=== PATIENT | female | born 1985 | race Hispanic/Latino ===

== ENCOUNTER 2016-08-22 11:51 | Emergency (ER) | payer SELFPAY ==
[~2016-08-22] VITALS: Ht 160 cm; Wt 68.0 kg
[2016-08-22 13:14] LABS: BASOPHILS % (AUTO) 0 % (0-10); EOSINOPHILS # (AUTO) 0.1 10^3/uL (0.0-0.3); EOSINOPHILS % (AUTO) 1 % (0-10); LYMPHOCYTES # (AUTO) 2.8 X 10^3 (1.0-4.0); LYMPHOCYTES % (AUTO) 28 % (12-44); MEAN CORPUSCULAR HEMOGLOBIN 26 PG (25-34); MEAN CORPUSCULAR HGB CONC 33 G/DL (32-36); MEAN CORPUSCULAR VOLUME 80 FL (80-99); MONOCYTES % (AUTO) 11 % (0-12); NEUTROPHILS # (AUTO) 5.8 X 10^3 (1.8-7.8); NEUTROPHILS % (AUTO) 60 % (42-75); PLATELET COUNT 229 10^3/uL (130-400); RED BLOOD COUNT 4.78 10^6/uL (4.35-5.85); RED CELL DISTRIBUTION WIDTH 15.3 % (10.0-14.5); WHITE BLOOD COUNT 9.7 10^3/uL (4.3-11.0)
[2016-08-22 13:15] LABS: BILIRUBIN,URINE NEGATIVE (NEGATIVE); KETONES,URINE NEGATIVE (NEGATIVE); LEUKOCYTE ESTERASE ,URINE 2+ (NEGATIVE); NITRITE,URINE NEGATIVE (NEGATIVE); PH,URINE 6 (5-9); PROTEIN,URINE 3+ (NEGATIVE); UROBILINOGEN,URINE NORMAL (NORMAL)
[2016-08-22 13:43] LABS: SQUAMOUS EPITHELIAL CELL,UR 0-2 /HPF
--- NOTE | 2016-08-22 14:47 | Diagnostic Imaging Report ---
EXAMINATION: Transvaginal OB ultrasound. INDICATION: Vaginal bleeding. FINDINGS: The uterus is 7.8 x 5.2 x 5.3 cm. The endometrial stripe is 1 cm in thickness with no focal lesion or cystic gestational sac seen. The myometrium anteriorly demonstrates a 1.2 x 0.8 x 0.8 cm myometrial fibroid in the anterior body. The left ovary demonstrates a 1.7 cm lesion with no internal vascularity, suggestive of a hemorrhagic follicle with surrounding vascularity in the remaining ovarian tissue. The right ovary is 3.4 x 2.7 x 1.6 cm in size with a normal follicle seen. No significant free fluid or fluid collection in the pelvis is identified. IMPRESSION: 1. There is a 1.2 cm anterior myometrial fibroid. 2. Normal appearance of the endometrium. This may relate to a very early normal , failed , or occult ectopic . Serial beta-hCG and followup ultrasound would be recommended. Dictated by: Dictated on workstation # [id number]
--- NOTE | 2016-08-22 15:24 | ED GU-Female ---
General Chief Complaint: -Female Stated Complaint: VAG BLEEDING 6 WKS PREG Nursing Triage Note: PT REPORTS VAGINAL BLEEDING STARTING MONDAY, INCREASING TODAY AND WHITE TISSUE SEEN. PT REPORTS LAST MENTRUAL PERIOD 07/03 AND ESTIMATED 6 WEEKS . SHUTTLE FILLER LINE USED. Nursing Sepsis Screen: No Definite Risk Source: patient, spanish medical interpreter Exam Limitations: no limitations, language barrier History of Present Illness Time seen by provider: 12:26 Initial Comments Patient believes she is about 6 weeks . Today she developed vaginal bleeding and passed some white or aguilera tissue. Her last menstrual period was July 03. She has some burning with urination. No fever or vomiting. She has not yet had an ultrasound with this . Dr. Edouard is her assigned physician but she has not seen Dr. Edouard yet. Allergies and Home Medications Home Medications No Active Prescriptions or Reported Meds Constitutional: no symptoms reported EENTM: no symptoms reported Respiratory: no symptoms reported Cardiovascular: no symptoms reported Gastrointestinal: no symptoms reported Genitourinary: see HPI : Yes LMP: Jul 03, 2016 Musculoskeletal: no symptoms reported Skin: no symptoms reported Psychiatric/Neurological: No Symptoms Reported Past Httzria-Erjsjh-Feideb Hx Patient Social History Alcohol Use: Denies Use Recreational Drug Use: No Smoking Status: Never a Smoker Recent Foreign Travel: No Contact w/Someone Who Travel: No Recent Infectious Disease Expo: No Recent Hopitalizations: No Immunizations Up To Date Tetanus Booster (TDap): Unknown Seasonal Allergies Seasonal Allergies: No Surgeries HX Surgeries: No Respiratory Hx Respiratory Disorders: No Cardiovascular Hx Cardiac Disorders: No Neurological Hx Neurological Disorders: No Reproductive System : Yes Hx : 3 Hx Para: 2 Genitourinary Hx Genitourinary Disorders: No Gastrointestinal Hx Gastrointestinal Disorders: No Musculoskeletal Hx Musculoskeletal Disorders: No Endocrine Hx Endocrine Disorders: No HEENT HX ENT Disorders: No Cancer Hx Cancer: No Psychosocial Hx Psychiatric Problems: No Integumentary HX Skin/Integumentary Disorder: No Blood Transfusions Hx Blood Disorders: No Physical Exam Vital Signs Vital Sign - Last 12Hours 08/22/16 08/22/16 12:28 15:36 Temp 97.2 Pulse 54 Resp 18 B/P (MAP) 119/90 Pulse Ox 99 O2 Delivery Room Air Capillary Refill : Less Than 3 Seconds General Appearance: WD/WN, no apparent distress HEENT: normal ENT inspection Neck: normal inspection Cardiovascular: regular rate, rhythm, no edema, no murmur Respiratory: lungs clear, normal breath sounds, no respiratory distress, no accessory muscle use Gastrointestinal: normal bowel sounds, soft, other (note suprapubic tenderness) Extremities: normal inspection, no pedal edema Neurologic/Psychiatric: gathering worker II-XII nml as tested, no motor/sensory deficits, alert, normal mood/affect, oriented x 3 Skin: normal color, warm/dry Progress/Results/Core Measures Results/Orders Lab Results Laboratory Tests Test 08/22/16 13:06 Range/Units White Blood Count 9.7 4.3-11.0 10^3/uL Red Blood Count 4.78 4.35-5.85 10^6/uL Hemoglobin 12.6 11.5-16.0 G/DL Hematocrit 38 35-52 % Mean Corpuscular Volume 80 80-99 FL Mean Corpuscular Hemoglobin 26 25-34 PG Mean Corpuscular Hemoglobin Concent 33 32-36 G/DL Red Cell Distribution Width 15.3 H 10.0-14.5 % Platelet Count 229 130-400 10^3/uL Mean Platelet Volume 11.0 H 7.4-10.4 FL Neutrophils (%) (Auto) 60 42-75 % Lymphocytes (%) (Auto) 28 12-44 % Monocytes (%) (Auto) 11 0-12 % Eosinophils (%) (Auto) 1 0-10 % Basophils (%) (Auto) 0 0-10 % Neutrophils # (Auto) 5.8 1.8-7.8 X 10^3 Lymphocytes # (Auto) 2.8 1.0-4.0 X 10^3 Monocytes # (Auto) 1.0 0.0-1.0 X 10^3 Eosinophils # (Auto) 0.1 0.0-0.3 10^3/uL Basophils # (Auto) 0.0 0.0-0.1 10^3/uL Urine Color RED H Urine Clarity CLEAR Urine pH 6 5-9 Urine Specific Bryant 1.010 L 1.016-1.022 Urine Protein 3+ H NEGATIVE Urine Glucose (UA) NEGATIVE NEGATIVE Urine Ketones NEGATIVE NEGATIVE Urine Nitrite NEGATIVE NEGATIVE Urine Bilirubin NEGATIVE NEGATIVE Urine Urobilinogen NORMAL NORMAL MG/DL Urine Leukocyte Esterase 2+ H NEGATIVE Urine RBC (Auto) 5+ H NEGATIVE Urine RBC TNTC H /HPF Urine WBC 5-10 H /HPF Urine Squamous Epithelial Cells 0-2 /HPF Urine Crystals NONE /LPF Urine Bacteria TRACE /HPF Urine Casts NONE /LPF Urine Mucus NEGATIVE /LPF Urine Culture Indicated YES Human Chorionic Gonadotropin, Quant 1429 H <5 MIU/ML Micro Results Microbiology 08/22/16 Urine Culture - Preliminary, Resulted My Orders Orders - ELIESER NOLAN MD Cbc With Automated Diff (08/22/16 12:35) Hcg,Quantitative (08/22/16 12:35) Ua Culture If Indicated (08/22/16 12:35) Abo Rh Type (08/22/16 12:35) Us Ob Transvaginal 35985 (08/22/16 13:09) Urine Culture (08/22/16 13:06) Vital Signs/I&O Blood Pressure Mean: 100 Progress Note : Progress Note Patient did pass some tissue while in the emergency room. It was sent to lab for Gross evaluation. Ultrasound was performed and showed no suspected retained products of conception. She was ultimately dismissed home Departure Impression Impression: Primary Impression: Miscarriage Disposition: 01 HOME, SELF-CARE Condition: Improved Decision to Admit Reason: Admit from ER (General) Decision to Admit/Date: Aug 22, 2016 Time/Decision to Admit Time: 15:00 Departure-Patient Inst. Referrals: SHANICE EDOUARD MD (PCP/Family) Primary Care Physician Patient Instructions: Miscarriage Add. Discharge Instructions: You appear to have had a miscarriage. Please follow-up with your doctor at the [facility] within 1 week. You should have a repeat hormone level checked to ensure the level returns to normal. Avoid becoming again until cleared by your doctor. You may take Tylenol and/or ibuprofen for pain. Return to the ER if symptoms worsen or develop new symptoms such as fever. All discharge instructions reviewed with patient and/or family. Voiced understanding. Scripts No Active Prescriptions or Reported Meds Copy Copies To 1: SHANICE EDOUARD MD, JOSHUA T MD Aug 22, 2016 15:24
[2016-08-22 15:36] VITALS: BP 134/64
== END 2016-08-22 15:36 | disposition home or self-care (01) ==
LOC: ER 12:03
DX: O03.9 Complete or unspecified spontaneous abortion without complication (principal); Z3A.01 Less than 8 weeks gestation of pregnancy; D25.9 Leiomyoma of uterus, unspecified
CPT/HCPCS: 36415; 76817; 81000; 84702; 85025; 86900; 86901; 87088; 88305; 99282

== ENCOUNTER 2017-12-13 13:57 | Emergency (ER) | payer SELFPAY ==
[~2017-12-13] VITALS: Ht 160 cm; Wt 72.6 kg
--- OUTSIDE RECORDS SUMMARY | 2017-12-13 14:03 | XMS REPORT ---
Author Author SHANICE CONNELLY [facility] Address [address] [place] [address] Care Team Providers Care Pipeline Systems Operator Name Role Phone SHANICE CONNELLY Unavailable PROBLEMS Unknown Problems ALLERGIES No Information SOCIAL HISTORY Never Assessed PLAN OF CARE VITAL SIGNS MEDICATIONS No Known Medications RESULTS Name Result Date Reference Range HCG, QUANTITATIVE 2016-08-30 hCG,Beta Subunit,Qnt,Serum 7 PROCEDURES Procedure Date Ordered Result Body Site CHORIONIC GONADOTROPIN TEST August 30, 2016 VENIPUNCT, ROUTINE* August 30, 2016 IMMUNIZATIONS No Known Immunizations MEDICAL (GENERAL) HISTORY Type Description Date Hospitalization History childbirth
--- OUTSIDE RECORDS SUMMARY | 2017-12-13 14:04 | XMS REPORT ---
Author Author PIERRE MENDEZ Organization [facility] Address [address] [place] [address] Care Team Providers Care Automotive Designer Name Role Phone PIERRE MENDEZ Unavailable PROBLEMS Unknown Problems ALLERGIES No Known Allergies ENCOUNTERS Encounter Location Date Diagnosis [facility] [address] [phone] Nov, Screening for STDs (sexually transmitted diseases) Z11.3 ; Burning with urination R30.0 and Papanicolaou smear for cervical cancer screening Z12.4 [facility] [id number] [place] [phone] August, Threatened miscarriage O20.0 [facility] [id number] [place] [phone] Jul, [facility] [id number] [place] [phone] Jul, Threatened miscarriage O20.0 [facility] [id number] [place] [phone] Jul, [facility] [id number] [place] [phone] Jul, Threatened miscarriage O20.0 [facility] [id number] [place] [phone] Jul, [facility] [address] [phone] Jul, [facility] [id number] [place] [phone] Jul, Encounter for test, result unknown Z32.00 IMMUNIZATIONS No Known Immunizations SOCIAL HISTORY Never Assessed REASON FOR VISIT STD check--daltonnikhilaugustus lissette, burning with urination x 2 weeks PLAN OF CARE Activity Details Follow Up 1 Year with PCP for well woman Reason: VITAL SIGNS Height 5'3" in 2016-12-29 Weight 146.0 lbs 2016-12-29 Temperature 97.3 degrees Fahrenheit 2016-12-29 Heart Rate 64 bpm 2016-12-29 Respiratory Rate 18 2016-12-29 BMI 25.86 kg/m2 2016-12-29 Blood pressure systolic 102 mmHg 2016-12-29 Blood pressure diastolic 58 mmHg 2016-12-29 MEDICATIONS No Known Medications RESULTS Name Result Date Reference Range TRICHOMONAS (IN HOUSE) 2016-12-29 TRICHOMONAS negative Control + Lot # [id number] Exp date 01/2018 UA LONG DIP (IN HOUSE) 2016-12-29 Lot # [id number] Exp date 08/2017 Clarity clear Color yellow Odor no GLU neg DONNA neg KET neg SG 1.025 BLO neg pH 5.5 Protein neg URO 0.2 NIT neg CHRISTIE neg Lot # Exp date BACTERIAL VAGINOSIS (IN HOUSE) 2016-12-29 RESULTS negative Control + Lot # [id number] Exp date 01/2018 CULTURE, GENITAL 2016-12-29 Genital Culture, Routine Final report Result 1 PDF Report 2016-12-29 PDF Report1 LCLS PAP TEST W/ HPV REGARDLESS 2016-12-29 DIAGNOSIS: Specimen adequacy: Clinician provided ICD10: Performed by: . . Note: HPV, high-risk Negative Negative GC/CHLAM PROBE (STATE) CHLAMYDIA negative GC negative PROCEDURES Procedure Date Ordered Result Body Site CULTURE, BACTERIA, OTHER Dec 29, 2016 TRICHOMONAS ASSAY W/OPTIC Dec 29, 2016 URINALYSIS, AUTO, W/O SCOPE Dec 29, 2016 Bacterial Vaginosis In House Dec 29, 2016 No Charge Dec 29, 2016 SPECIMEN HANDLING Dec 29, 2016 INSTRUCTIONS MEDICATIONS ADMINISTERED No Known Medications MEDICAL (GENERAL) HISTORY Type Description Date Hospitalization History childbirth
--- NOTE | 2017-12-13 14:43 | ED GU-Female ---
General Chief Complaint: Abdominal/GI Problems Stated Complaint: ABD PAIN-6 WEEKS PG Nursing Triage Note: States that she is 6 weeks gravid. 3 weeks c/o lower abd cramping. today it is worse stating that she feels like she is in labor. Denies bleeding, fever, nausea, diarrhea, or urinary sx. Nursing Sepsis Screen: No Definite Risk Source: patient, other Exam Limitations: language barrier (Occitan as a second language, friend Demetria is interpreting) History of Present Illness Date Seen by Provider: Dec 13, 2017 Time Seen by Provider: 14:30 Initial Comments The patient presents to the ER by private conveyance with a chief complaint that she's having some crampy abdominal pain for the past 3 weeks. She had a positive test at that time and her first day of her last menstrual period is October 31 putting her at 6 weeks and 1 day is a . She has not had any bleeding, discharge, dysuria, fevers, chills. She has not used anything for her pain. She does not have any significant medical problems. She did have a miscarriage with her last and she wants to make sure everything is going okay this time. Allergies and Home Medications Allergies Coded Allergies: No Known Drug Allergies (Unverified , 12/13/17) Home Medications No Active Prescriptions or Reported Meds Patient Home Medication List Home Medication List Reviewed: Yes Review of Systems Constitutional: No chills, No diaphoresis EENTM: No ear pain, No eye pain Respiratory: No cough, No dyspnea on exertion Cardiovascular: No chest pain, No palpitations Gastrointestinal: abdominal pain (suprapubic); No constipation, No nausea, No vomiting Past Amvrbex-Nrqnwp-Hzcpvv Hx Patient Social History Alcohol Use: Denies Use Recreational Drug Use: No Smoking Status: Never a Smoker 2nd Hand Smoke Exposure: No Recent Foreign Travel: No Contact w/Someone Who Travel: No Recent Infectious Disease Expo: No Recent Hopitalizations: No Physical Abuse: No Sexual Abuse: No Mistreated: No Fear: No Immunizations Up To Date Tetanus Booster (TDap): Unknown Seasonal Allergies Seasonal Allergies: No Past Medical History Surgeries: No Respiratory: No Cardiac: No Neurological: No Last Menstrual Period: Nov 03, 2017 Hx : 4 Hx Para: 3 Hx Total # of Abortions (Sp): 1 Gastrointestinal: No Musculoskeletal: No Endocrine: No Cancer: No Psychosocial: No Nursing Suicide Risk Score: 0 Integumentary: No Blood Disorders: No Physical Exam Vital Signs Vital Signs - First Documented 12/13/17 14:02 Temp 98.0 Pulse 67 Resp 16 B/P (MAP) 121/61 (81) Capillary Refill : Less Than 3 Seconds Height, Weight, BMI Height: 5'3.00" Weight: 160lbs. oz. 72.256513wx; BMI Method:Stated General Appearance: WD/WN, no apparent distress HEENT: PERRL/EOMI, pharynx normal Cardiovascular: normal peripheral pulses, regular rate, rhythm, no edema Respiratory: chest non-tender, lungs clear, no respiratory distress, no accessory muscle use Gastrointestinal: normal bowel sounds, soft, tenderness (suprapubic and bilateral lower quadrants are mildly tender to palpation) Neurologic/Psychiatric: alert, normal mood/affect, oriented x 3 Progress/Results/Core Measures Suspected Sepsis Recent Fever Within 48 Hours: No Infection Criteria Present: None New/Unexplained Altered Menta: No Sepsis Screen: No Definite Risk SIRS Temperature:98.0 Pulse: 67 Respiratory Rate: 16 Blood Pressure 121 /61 Mean: 81 Results/Orders Lab Results Laboratory Tests Test 12/13/17 14:02 12/13/17 14:38 12/13/17 14:49 Range/Units Urine Color YELLOW Urine Clarity CLEAR Urine pH 5 5-9 Urine Specific Ivins 1.010 L 1.016-1.022 Urine Protein NEGATIVE NEGATIVE Urine Glucose (UA) NEGATIVE NEGATIVE Urine Ketones NEGATIVE NEGATIVE Urine Nitrite NEGATIVE NEGATIVE Urine Bilirubin NEGATIVE NEGATIVE Urine Urobilinogen NORMAL NORMAL MG/DL Urine Leukocyte Esterase NEGATIVE NEGATIVE Urine RBC (Auto) NEGATIVE NEGATIVE Urine RBC RARE /HPF Urine WBC 0-2 /HPF Urine Squamous Epithelial Cells 2-5 /HPF Urine Renal Epithelial Cells NONE /HPF Urine Crystals NONE /LPF Urine Bacteria TRACE /HPF Urine Casts NONE /LPF Urine Mucus NEGATIVE /LPF Urine Culture Indicated NO Human Chorionic Gonadotropin, Quant 08125 H <5 MIU/ML Micro Results Microbiology 12/13/17 Wet Prep - Final, Complete My Orders Orders - EDWARD BURNS Ua Culture If Indicated (12/13/17 14:23) Hcg,Quantitative (12/13/17 14:23) Acetaminophen Tablet (Tylenol Tablet) (12/13/17 14:45) Wet Prep (8/15/18 14:36) Neisseria Gonorrhea Swab (12/13/17 14:36) Chlam Dna Probe (12/13/17 14:36) Medications Given in ED Current Medications Medications Dose Ordered Sig/Rosanna Route Start Time Stop Time Status Last Admin Dose Admin Acetaminophen 1,000 mg ONCE ONCE PO 12/13/17 14:45 12/13/17 14:46 DC 12/13/17 14:48 1,000 MG Vital Signs/I&O 12/13/17 14:02 Temp 98.0 Pulse 67 Resp 16 B/P (MAP) 121/61 (81) Capillary Refill : Less Than 3 Seconds Blood Pressure Mean: 81 Point of Care Testing Urine -Bedside: Positive Progress Note : Time: 14:41 Progress Note The patient is not in any acute distress at this time. We'll get a quantitative hCG and look for evidence of infection such as a urinary tract infection, STD or Trichomonas. If these things are negative then we can have her follow-up Monday or early next week with an OB provider. We've considered tubal ligation but she's not having a tremendous amount of pain in her history is that this crampy abdominal discomfort and going on for the past 3 weeks. The patient has an appointment next Monday in one week. We'll have her call and get a repeat quantitative done prior to that appointment. Departure Impression Primary Impression: Qualified Codes: Z3A.01 - Less than 8 weeks gestation of Additional Impression: Abdominal cramping affecting Disposition: HOME, SELF-CARE Condition: Stable Departure-Patient Inst. Decision time for Depature: 16:01 Referrals: SHANICE CONNELLY MD (PCP/Family) Primary Care Physician Patient Instructions: Round Ligament Pain Add. Discharge Instructions: If your cramping pain comes back you can take 1000 mg of Tylenol every 8 hours as well as drink some fluids and sit down and rest. Use heating pads and massage. Call the clinic and get set up to do a repeat quantitative beta hCG prior to your appointment next week but not before Monday, 2 days from now. If you start to have vaginal bleeding then you should return to the ER immediately. If any of your other labs are positive we will call you with appropriate antibiotic prescriptions. 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 All discharge instructions reviewed with patient and/or family. Voiced understanding. Scripts Pnv No.122/Iron/Folic Acid ( Multi Tablet) 1 Each Tablet 1 EACH PO DAILY for 30 Days, #30 TAB 0 Refills Prov: EDWARD BURNS 12/13/17 Copy Copies To 1: ELI BARROS DO EDWARD BURNS Dec 13, 2017 14:42
[2017-12-13] MEDS ORDERED: ACETAMINOPHEN 500 MG TAB (TYLENOL) PO ONE (14:45)
[2017-12-13 15:03] LABS: BILIRUBIN,URINE NEGATIVE (NEGATIVE); CLARITY,URINE CLEAR; COLOR,URINE YELLOW; GLUCOSE, URINE (UA) NEGATIVE (NEGATIVE); KETONES,URINE NEGATIVE (NEGATIVE); LEUKOCYTE ESTERASE ,URINE NEGATIVE (NEGATIVE); NITRITE,URINE NEGATIVE (NEGATIVE); PH,URINE 5 (5-9); PROTEIN,URINE NEGATIVE (NEGATIVE); UROBILINOGEN,URINE NORMAL (NORMAL)
[2017-12-13 15:10] LABS: BACTERIA,URINE TRACE /HPF; RBC,URINE RARE /HPF; WBC,URINE 0-2 /HPF
[2017-12-13] MEDS ORDERED: PNV1TABL81 PO (16:05)
[2017-12-13 16:20] VITALS: BP 120/73
== END 2017-12-13 16:20 | disposition home or self-care (01) ==
LOC: EDUNIT# 13:57 → ER 14:00
DX: O99.89 Other specified diseases and conditions complicating pregnancy, childbirth and the puerperium (principal); R10.31 Right lower quadrant pain; R10.32 Left lower quadrant pain; Z3A.01 Less than 8 weeks gestation of pregnancy
CPT/HCPCS: 36415; 81000; 84702; 84703; 87210; 87491; 87591; 99284

== ENCOUNTER 2018-08-02 06:04 | Inpatient (IN) | payer OTHER ==
[2018-08-02] VITALS (27 sets, daily range): BP systolic 100–164; BP diastolic 52–72
[~2018-08-02] VITALS: Ht 162.6 cm; Wt 78.5 kg
[~2018-08-02 06:04] MED LIST: PNV1TABL81 PO
--- NOTE | 2018-08-02 06:15 | NUR ---
NOÉ BOWEN presented to unit via ambulatory from ED, accompanied by family for INDUCTION. NOÉ BOWEN weighed, gowned, voided, and to bed. EFHM and TOCO applied, VS taken. NOÉ BOWEN oriented to bed controls, call light, TV, heat, and A/C controls.
[2018-08-02] MEDS ORDERED: D5 LR IV SOLUTION 1,000 ML IV SCH (06:19)
[2018-08-02] MEDS ORDERED: MINERAL OIL CONCENTRATE 99.9% 15 ML UDC TOP PRN (06:30)
[2018-08-02 06:48] LABS: BASOPHILS % (AUTO) 0 % (0-10); EOSINOPHILS # (AUTO) 0.1 10^3/uL (0.0-0.3); EOSINOPHILS % (AUTO) 1 % (0-10); HEMATOCRIT 32 % (35-52); HEMOGLOBIN 10.6 G/DL (11.5-16.0); LYMPHOCYTES # (AUTO) 1.9 X 10^3 (1.0-4.0); LYMPHOCYTES % (AUTO) 26 % (12-44); MEAN CORPUSCULAR HEMOGLOBIN 24 PG (25-34); MEAN CORPUSCULAR HGB CONC 33 G/DL (32-36); MEAN CORPUSCULAR VOLUME 74 FL (80-99); MEAN PLATELET VOLUME 11.6 FL (7.4-10.4); MONOCYTES # (AUTO) 0.8 X 10^3 (0.0-1.0); MONOCYTES % (AUTO) 10 % (0-12); NEUTROPHILS # (AUTO) 4.6 X 10^3 (1.8-7.8); NEUTROPHILS % (AUTO) 63 % (42-75); PLATELET COUNT 217 10^3/uL (130-400); RED CELL DISTRIBUTION WIDTH 16.7 % (10.0-14.5); WHITE BLOOD COUNT 7.3 10^3/uL (4.3-11.0)
--- NOTE | 2018-08-02 07:15 | NUR ---
THIS RN AT BEDSIDE WITH DR DE SANTIAGO. THIS RN INTRODUCES SELF TO PT AND FAMILY IN ROOM. DR DE SANTIAGO DISCUSSES PLAN FO CARE WITH PT. HOSPITAL RECEPTIONIST AT BEDSIDE WELL. PT VERBALIZES UNDERSTANDING. QUESTIONS ANSWERED. SVE AND AROM BY DR DE SANTIAGO AT THIS TIME. THIS RN PREFORMS PHYSICAL ASSESSMENT, VSS.DENIES NEEDS AT THIS TIME. CALL LIGHT WITHIN REACH.
--- NOTE | 2018-08-02 07:21 | History & Physical-OB ---
OB - Chief Complaint & HPI Date/Time Date of Admission: Date of Admission: Aug 02, 2018 at 06:04 Date seen by a Provider: Aug 02, 2018 Time Seen by a Provider: 07:15 Chief Complaint/History OB-Reason for Admission/Chief: Induction of Labor Hx : 4 Hx Para: 2 Expected Date of Delivery: Aug 04, 2018 Gestational Age in Weeks: 39 Gestational Age in Days: 5 Admission Nurse Assessment Rev: Yes History of Labs GBS negative Allergies and Home Medications Allergies Coded Allergies: No Known Drug Allergies (Unverified , 12/13/17) Home Medications Pnv No.122/Iron/Folic Acid 1 Each Tablet, 1 EACH PO DAILY Prescribed by: EDWARD BURNS on 12/13/17 6229 Patient Home Medication List Home Medication List Reviewed: Yes OB - History Hx of Present Care: Yes Ultrasounds: Normal mid trimester US Obstetrical Complications: None Medical Complications: None Delivery History Hx Blood Disorders: No Patient Past Medical History no chronic medical problems Social History/Family History 2nd Hand Smoke Exposure: No Immunizations Tetanus Booster (TDap): Unknown OB - Admission Exam Physical Exam Vitals: Vital Signs 08/02/18 06:30 Temp 97.8 Pulse 65 Resp 18 B/P (MAP) 123/68 (86) O2 Delivery Room Air HEENT: Moist Membranes Heart: Rhythm Normal Lungs: Clear Abdomen: Gravid Cervical Dilatation: 2cm Effacement: 50% Station: -3 Membranes: Intact Heart Rate: 140's Accelerations: Accelerations Present Short Term Variability: Present Venetian Blind Assembler Variability: Average (6-25) Contractions on Admission: >10 Minutes Apart Intensity: Mild Jang Scoring Tool (Modified) Dilation (cm): 1-2cm (1) Effacement (%): 31-51% (1) Descent/Station: -3 (0) Cervix Consistency: Medium(1) Cervix Position: Middle/Mid-Position (1) Add 1 point for: Each previous vaginal delivery (1) Jang Score: 6 Labs Laboratory Tests Test 08/02/18 06:35 Range/Units White Blood Count 7.3 4.3-11.0 10^3/uL Red Blood Count 4.40 4.35-5.85 10^6/uL Hemoglobin 10.6 L 11.5-16.0 G/DL Hematocrit 32 L 35-52 % Mean Corpuscular Volume 74 L 80-99 FL Mean Corpuscular Hemoglobin 24 L 25-34 PG Mean Corpuscular Hemoglobin Concent 33 32-36 G/DL Red Cell Distribution Width 16.7 H 10.0-14.5 % Platelet Count 217 130-400 10^3/uL Mean Platelet Volume 11.6 H 7.4-10.4 FL Neutrophils (%) (Auto) 63 42-75 % Lymphocytes (%) (Auto) 26 12-44 % Monocytes (%) (Auto) 10 0-12 % Eosinophils (%) (Auto) 1 0-10 % Basophils (%) (Auto) 0 0-10 % Neutrophils # (Auto) 4.6 1.8-7.8 X 10^3 Lymphocytes # (Auto) 1.9 1.0-4.0 X 10^3 Monocytes # (Auto) 0.8 0.0-1.0 X 10^3 Eosinophils # (Auto) 0.1 0.0-0.3 10^3/uL Basophils # (Auto) 0.0 0.0-0.1 10^3/uL OB - Assessment/Plan/Diagnosis Assessment Assessment: induction of labor Admission Dx IUP at term 39weeks Admission Status: Inpatient Order (span 2 midnights) Reason for Inpatient Admission: L&D Plan Plan: Induction Induction Method: AROM Other Plan -pitocin augmentation -stadol for pain relief CALLY DE SANTIAGO MD Aug 02, 2018 07:21
[2018-08-02] MEDS ORDERED: OXYTOCIN/NORMAL SALINE 500 ML IV SCH (07:22)
[2018-08-02] MEDS ORDERED: BUTORPHANOL INJ 2 MG/ML (STADOL) VIAL IV PRN (07:30)
--- NOTE | 2018-08-02 10:30 | NUR ---
DR DE SANTIAGO UPDATED ON CURRENT PT REPORT. UC 2-3 MIN APART, SVE 5.5/80/-2, RATING PAIN 11/07, PITOCIN ON . ACKNOWLEDGED BY DR DE SANTIAGO. NO NEW ORDERS.
--- NOTE | 2018-08-02 11:10 | NUR ---
PT CALLED OUT WITH CALL LIGHT, CO PRESSURE, WANTS SVE. THIS RN PREFORMS SVE: /+2. DR DE SANTIAGO CALLED AT THIS TIME TO COME FOR DELIVERY. ROOM SETUP, NURSERY RN/S MADE AWARE AND COME TO BEDSIDE FOR DELIVERY.
--- NOTE | 2018-08-02 11:23 | NUR ---
1121: DR DE SANTIAGO AT BEDSIDE FOR DELIVERY. ROOM ALREADY SET UP FOR DELIVERY 1123: DELIVERY OF HEAD 1124: SPONTANEOUS VAGINAL DELIVERY OF VIABLE FEMALE INFANT. INFANT PLACED ON MOMS CHEST. MELISSA SAMPSON AT BEDSIDE FOR EVALUATION. 1125: CORD CLAMPED AND CUT BY DR DE SANTIAGO IV RIPPED OUT DURING PUSHING. 1129: INTACT PLACENTA DELIVERED AT THIS TIME BY DR DE SANTIAGO 1130: RECOVERY PERIOD BEGINS. FUNDUS FIRM, MIDLINE, 1 BELOW, LIGHT BLEEDING. DR DE SANTIAGO DOES NOT ORDER TO HAVE IC REPLACED, NO ORDER FOR PITOCIN AT THIS TIME.
--- NOTE | 2018-08-02 11:30 | NUR ---
1130: RECOVERY PERIOD BEGINS. FUNDUS FIRM, MIDLINE, 1 BELOW UMBILICUS, LIGHT BLEEDING. IV HAD BEEN PULLED OUT DURING DELIVERY. DR DE SANTIAGO AWARE. NO NEW ORDER TO REPLACE IV OR PITOCIN AT THIS TIME. AT WARMER FOR EVALUATION FROM VANNESA SAMPSON. PERICARE AND LINEN CHANGED BY THIS RN. PT DENIES NEEDS AT THIS TIME. CALL LIGHT WITHIN REACH. 1145: FUNDUS FIRM, MIDLINE, 1 BELOW UMBILICUS, LIGHT BLEEDING. PT DENIES NEEDS AT THIS TIME. FAMILY REMAINS AT BEDSIDE. CALL LIGHT WITHIN REACH. 1200: FUNDUS FIRM, MIDLINE, 1 BELOW UMBILICUS, LIGHT BLEEDING. PT ATTEMPT TO BREASTFEED AT THIS TIME WITH ASSISTANCE FROM CAMILLA GRANADO. PT DENIES NEEDS AT THIS TIME. FAMILY REMAINS AT BEDSIDE. CALL LIGHT WITHIN REACH. 1215: FUNDUS FIRM, MIDLINE, LEVEL WITH UMBILICUS, MODERATE BLEEDING. PT DENIES NEEDS AT THIS TIME. FAMILY REMAINS AT BEDSIDE. CALL LIGHT WITHIN REACH. 1230: FUNDUS FIRM, MIDLINE, LEVEL WITH UMBILICUS, MODERATE BLEEDING. PT CO ABD CRAMPING, MOTRIN ADMIN. FAMILY REMAINS AT BEDSIDE. CALL LIGHT WITHIN REACH. 1245: FUNDUS FIRM, MIDLINE, LEVEL WITH UMBILICUS, LIGHT BLEEDING. PT DENIES NEEDS AT THIS TIME. FAMILY REMAINS AT BEDSIDE. CALL LIGHT WITHIN REACH. RECOVERY PERIOD ENDS. VSS. PERICARE AND LINEN CHANGE BY THIS RN. PT PREPARED TO TRANSFER TO .
--- NOTE | 2018-08-02 11:38 | OB Labor & Delivery Record ---
L&D History Date of Service Date of Service: Aug 02, 2018 History Expected Date of Delivery: Aug 04, 2018 Gestational Age in Weeks: 39 Hx : 4 Hx Para: 2 Complications Events: Routine care Operative Indications (Cesarea: N/A-Vaginal Delivery Intrapartal Events: None L&D Stage1 Stage One Onset of Labor - Date: Aug 02, 2018 Onset of Labor - Time: 07:00 Monitors and Tracing Monitor Mode: Internal Heart Rate: 130 Monitor Accelerations: Uniform Monitor Decelerations: None Station: -2 Short Term Variability: Present Presentation: Vertex Vital Signs VS - Last 72 Hours, by Label 08/02/18 08/02/18 08/02/18 08/02/18 06:30 07:15 07:30 07:45 Temp 97.8 97.8 Pulse 65 54 64 54 Resp 18 18 B/P (MAP) 123/68 (86) 119/67 (84) 118/69 (85) 117/64 (81) Pulse Ox 99 O2 Delivery Room Air Room Air Room Air Room Air 08/02/18 08/02/18 08/02/18 08/02/18 08:00 08:15 08:30 08:45 Temp 97.8 Pulse 52 47 49 52 Resp 16 B/P (MAP) 123/62 (82) 127/61 (83) 125/63 (83) 119/61 (80) O2 Delivery Room Air Room Air Room Air Room Air 08/02/18 08/02/18 08/02/18 08/02/18 09:00 09:15 09:30 09:45 Pulse 44 46 42 45 Resp 18 B/P (MAP) 137/60 (85) 117/55 (75) 124/72 (89) 123/61 (81) O2 Delivery Room Air Room Air Room Air Room Air 08/02/18 08/02/18 08/02/18 10:00 10:15 10:30 Pulse 50 53 54 B/P (MAP) 138/61 (86) 153/70 (97) 151/70 (97) O2 Delivery Room Air Room Air Room Air Signs of Distress by FHT Signs of Distress no Rupture of Membranes Spontaneous Ruture of Membrane: No Amniotic Membrane Rupture Time: 0710 Amniotic Membrane Fluid Desc.: Clear Induction/Anesthesia Medications stadol L&D Stage2 Stage Two Stage II Date: Aug 02, 2018 Stage II Time: 11:24 Monitors and Tracing Monitor Mode: Internal Heart Rate: 130 Monitor Accelerations: Uniform Monitor Decelerations: None Usp Variability: Average (6-10) Short Term Variability: Present Position: Left Occiput Anterior Presentation: Vertex Signs of Distress by FHT Signs of Distress no Cord Descript/Complications Cord Vessel Description: 3 Vessels Delivery Type Delivery Method: Spontaneous Vaginal Anterior Shoulder: Left Episiotomy/Perineal Laceration Laceraction(s)/Extensions: No Condition of Infant Delivery 1 minute Comment: 8 5 minute Comment: 9 Condition of Condition of Infant: Living Exam: No Observed Abnormalities Resuscitation Resuscitation: N/A - Spontaneous Resp L&D Stage3 Stage Three Stage III Date: Aug 02, 2018 Stage III Time: 11:29 Pictocin Pitocin Administration mu/min: 14 Pitocin ml/hr: 14 Pitocin Administration Comment: PITOCIN STARTED PER PROTOCOL Placenta Delivery Placenta Delivery: Spontaneous Delivery Summary Summary Estimated blood loss (mL): 250 Condition of Delivery Examined: Cervix Examined Post Hemorrhage: No Intervention Required none CALLY DE SANTIAGO MD Aug 02, 2018 11:38
[2018-08-02] MEDS ORDERED: BENZOCAINE/MENTHOL (DERMOPLAST) 56 ML CAN TP PRN (11:45)
[2018-08-02] MEDS ORDERED: TETANUS,DIPTH,PERTUSS P/F (BOOSTRIX) 0.5 ML VIAL IM ONE (11:45)
[2018-08-02] MEDS ORDERED: MEASLES,MUMPS,RUBELLA 1 EA INJ SQ ONE (11:45)
[2018-08-02] MEDS ORDERED: WITCH HAZEL(TUCKS) 40 EA JAR TOP PRN (11:45)
[2018-08-02] MEDS: IBUPROFEN 600 MG (MOTRIN) TAB PO SCH ×3 (12:34→23:51)
[2018-08-02] MEDS: HYDROcodone/APAP 5 MG/325 MG (LORTAB) TAB PO PRN ×2 (13:06→21:53)
--- NOTE | 2018-08-02 13:45 | NUR ---
Report received from CAMILLA Brewster. care assumed of pt.
[2018-08-02] MEDS ORDERED: CATHETER FLUSH 10 ML SYR IV SCH ×2 (14:00)
--- NOTE | 2018-08-02 15:20 | NUR ---
pt up to BR by self. voided without difficulty. luther-care completed. v-pad and panties in place. gown changed. FFu/1. lt ori noted.
--- NOTE | 2018-08-02 18:05 | NUR ---
scheduled Motrin p.o. given. see eMar for further. no c/o's voiced @ time.
--- NOTE | 2018-08-02 19:13 | NUR ---
report given to next shift.
[2018-08-03 05:42] VITALS: BP 99/60
[2018-08-03] MEDS: IBUPROFEN 600 MG (MOTRIN) TAB PO SCH ×2 (05:42→12:43)
[2018-08-03 06:04] LABS: BASOPHILS % (AUTO) 0 % (0-10); EOSINOPHILS # (AUTO) 0.1 10^3/uL (0.0-0.3); EOSINOPHILS % (AUTO) 1 % (0-10); HEMATOCRIT 27 % (35-52); HEMOGLOBIN 8.8 G/DL (11.5-16.0); LYMPHOCYTES # (AUTO) 2.2 X 10^3 (1.0-4.0); LYMPHOCYTES % (AUTO) 23 % (12-44); MEAN CORPUSCULAR HEMOGLOBIN 24 PG (25-34); MEAN CORPUSCULAR HGB CONC 33 G/DL (32-36); MEAN CORPUSCULAR VOLUME 74 FL (80-99); MEAN PLATELET VOLUME 11.7 FL (7.4-10.4); MONOCYTES # (AUTO) 1.1 X 10^3 (0.0-1.0); MONOCYTES % (AUTO) 11 % (0-12); NEUTROPHILS # (AUTO) 6.5 X 10^3 (1.8-7.8); NEUTROPHILS % (AUTO) 66 % (42-75); PLATELET COUNT 198 10^3/uL (130-400); RED CELL DISTRIBUTION WIDTH 16.8 % (10.0-14.5); WHITE BLOOD COUNT 9.9 10^3/uL (4.3-11.0)
--- NOTE | 2018-08-03 07:00 | NUR ---
REPORT FROM LINDA SAMSPON.
--- NOTE | 2018-08-03 07:10 | NUR ---
DR DE SANTIAGO HERE NEW ORDERS RECEIVED.
--- NOTE | 2018-08-03 07:29 | Discharge Summary ---
Diagnosis/Chief Complaint Date of Admission Aug 02, 2018 at 06:04 Date of Discharge August 03, 2018 Admission Diagnosis Admission Diagnosis 1. IUP at 39 weeks Discharge Diagnosis 1. IUP at 39 weeks Chief Complaint/HPI Chief Complaint/HPI 33 yo G4T3L3 who was admitted for induction of labor on 08/02 at 39w gestation. She received her care at [facility] and this was uneventful. Discharge Summary-OBS Procedures 1. Discharge Physical Examination Allergies: Coded Allergies: No Known Drug Allergies (Unverified , 12/13/17) Vitals & I&Os Vital Sign - Last 12Hours Date Time Temp Pulse Resp B/P (MAP) Pulse Ox O2 Delivery O2 Flow Rate FiO2 08/03/18 05:42 97.6 57 16 99/60 (73) 99 Room Air General Appearance: No Acute Distress Respiratory: Clear to Auscultation Cardiovascular: Regular Rate Abdominal: Soft (with uterus firm) Hospital Course Was the Problem List Reviewed?: Yes Patient was admitted during the morning of August 02, 2018 for induction of labor by AROM. She underwent amniotomy with placement of scalp electrode. Fluid was noted to be clear. She ultimately required Pitocin augmentation. She did not receive epidural. For pain control she had Stadol 1 mg every 2 hours as needed. Following delivery patient underwent post care orders. Her Hg was 8.8 compared to pre-delivery hg of 10.6. She had tolerated regular diet. She was ambulatory and without any shortness of breath or leg pain. She was noted to have minimal vaginal bleeding. She was without complaints and ready for DC in the afternoon of August 03, 2018. Labs Laboratory Tests 08/03/18 05:50: White Blood Count 9.9, Red Blood Count 3.61L, Hemoglobin 8.8L, Hematocrit 27L, Mean Corpuscular Volume 74L, Mean Corpuscular Hemoglobin 24L, Mean Corpuscular Hemoglobin Concent 33, Red Cell Distribution Width 16.8H, Platelet Count 198, Mean Platelet Volume 11.7H, Neutrophils (%) (Auto) 66, Lymphocytes (%) (Auto) 23 , Monocytes (%) (Auto) 11, Eosinophils (%) (Auto) 1, Basophils (%) (Auto) 0, Neutrophils # (Auto) 6.5, Lymphocytes # (Auto) 2.2, Monocytes # (Auto) 1.1H, Eosinophils # (Auto) 0.1, Basophils # (Auto) 0.0 Discharge Instructions to patient/family Please see electronic discharge instructions given to patient. Discharge Medications Reviewed and agree with Discharge Medication list on patient's Discharge Instruction sheet Clinical Quality Measures DVT/VTE Risk/Contraindication: Risk Factor Score Per Nursin RFS Level Per Nursing on Admit: 1=Low/No VTE PPX CALLY DE SANTIAGO MD Aug 03, 2018 07:29
--- NOTE | 2018-08-03 07:37 | Discharge Inst-Women's Service ---
Discharge Inst-Women's Serv Depart Medication/Instructions New, Converted or Re-Newed RX: Other Consults/Follow Up Additional Follow Up: Yes (Dr De Santiago in 6 weeks at [facility]) Activity Activity: Activity as Tolerated Driving Instructions: You May Drive Nothing Inside Vagina: No Finger (for 6 weeks.) Return to The Hospital For: as below Symptoms to Report to : Bleeding Excessive, Pain Increased, Fever Over 101 Degrees F, Vaginal Discharge Foul For Any Problems or Questions: Contact Your Physician CALLY DE SANTIAGO MD Aug 03, 2018 07:37
[2018-08-03 08:15] VITALS: BP_SYST 95; BP_SYST 99; BP_DIAS 50; BP_DIAS 60
--- NOTE | 2018-08-03 09:00 | NUR ---
INITIAL ASSESSMENT COMPLETED, SEE INTERVENTIONS FOR DETAILED ASSESSMENTS, PLAN OF CARE EXPLAINED, NO DISTRESS NOTED, PTS FRIEND USED ELECTRICIAN SUBSTATION FOR COMMUNICATION.
[2018-08-03 12:00] VITALS: BP 91/50
--- NOTE | 2018-08-03 12:30 | NUR ---
SCHEDULED MOTRIN GIVEN, PT TALKING ON TELEPHONE.
--- NOTE | 2018-08-03 14:05 | NUR ---
D/C INSTRUCTIONS EXPLAINED, SIGNED, NO QUESTIONS NOTED, PT TO FOLLOW UP WITH DR DE SANTIAGO IN 6 WEEKS, PTS FRIEND AGAIN USED FOR PUMPER HELPER FOR COMMUNICATIONS. NO QUESTIONS NOTED.
--- NOTE | 2018-08-03 14:25 | NUR ---
PT DISCHARGED TO HOME, AMBULATED TO PRIVATE CAR WITH S/O AT AT SIDE, NO DISTRESS NOTED.
== END 2018-08-03 14:25 | disposition home or self-care (01) | DRG 807 ==
LOC: LDRP 06:04 → EDPENDDISTM 08-03 14:00
PROVIDERS: ADMIT Family Medicine; ATTEND Family Medicine
PROC: 10E0XZZ Delivery of Products of Conception, External Approach (ICD-10-PCS; principal; 2018-08-02)
PROC: 10907ZC Drainage of Amniotic Fluid, Therapeutic from Products of Conception, Via Natural or Artificial Opening (ICD-10-PCS; 2018-08-02)
DX: O80 Encounter for full-term uncomplicated delivery (principal); Z37.0 Single live birth; Z3A.39 39 weeks gestation of pregnancy
CPT/HCPCS: 36415; 85025; 86850; 86900; 86901

== ENCOUNTER 2020-12-06 03:54 | Outpatient (CLI) | payer OTHER ==
[~2020-12-06] VITALS: Ht 157.4 cm; Wt 81.0 kg
[2020-12-06 04:12] LABS: BILIRUBIN,URINE NEGATIVE (NEGATIVE); CLARITY,URINE CLEAR; COLOR,URINE YELLOW; GLUCOSE, URINE (UA) NEGATIVE (NEGATIVE); KETONES,URINE NEGATIVE (NEGATIVE); LEUKOCYTE ESTERASE ,URINE NEGATIVE (NEGATIVE); NITRITE,URINE NEGATIVE (NEGATIVE); PH,URINE 5.5 (5-9); PROTEIN,URINE NEGATIVE (NEGATIVE)
[2020-12-06 04:21] LABS: BACTERIA,URINE TRACE /HPF
[2020-12-06 04:23] VITALS: BP 130/60
[2020-12-06 04:32] VITALS: BP 122/58
[2020-12-06 04:44] VITALS: BP 142/67
--- NOTE | 2020-12-07 08:11 | Physician Query-Final Dx ---
LANIE GARCIA 12/07/20 0811: Clinic Account Progress/Dx Physician Query: Please give diagnosis Please include # weeks gestation Date of Service Dec 06, 2020 at 03:54 CALLY DE SANTIAGO MD 12/08/20 0718: Clinic Account Progress/Dx DIAGNOSIS: Diagnosis 1. IUP at 37 weeks, non labor LANIE GARCIA Dec 07, 2020 08:11 CALLY DE SANTIAGO MD Dec 08, 2020 07:18
== END 2020-12-06 05:35 | disposition home or self-care (01) ==
LOC: LDRP 03:54 → WSo 03:54
PROVIDERS: ATTEND Family Medicine
DX: O62.9 Abnormality of forces of labor, unspecified (principal); Z3A.38 38 weeks gestation of pregnancy
CPT/HCPCS: 81000; 99213

== ENCOUNTER 2020-12-07 07:12 | Inpatient (IN) | payer OTHER ==
[2020-12-07] VITALS (22 sets, daily range): BP systolic 123–160; BP diastolic 59–74
[~2020-12-07] VITALS: Ht 159 cm; Wt 81.2 kg
[2020-12-07] MEDS ORDERED: D5 LR IV SOLUTION 1,000 ML IV ONE (07:35)
[2020-12-07] MEDS ORDERED: D5 LR IV SOLUTION 1,000 ML IV SCH (07:45)
--- NOTE | 2020-12-07 07:59 | History & Physical-OB ---
OB - Chief Complaint & HPI Date/Time Date of Admission: Date of Admission: Date seen by a Provider: Dec 07, 2020 Time Seen by a Provider: 07:50 Chief Complaint/History OB-Reason for Admission/Chief: Onset of Labor Hx : 4 Hx Para: 3 Expected Date of Delivery: Dec 22, 2020 Gestational Age in Weeks: 37 Gestational Age in Days: 6 Admission Nurse Assessment Rev: Yes Allergies and Home Medications Allergies Coded Allergies: No Known Drug Allergies (Unverified , 12/13/17) Home Medications No Active Prescriptions or Reported Meds Patient Home Medication List Home Medication List Reviewed: Yes OB - History Hx of Present Care: Yes Ultrasounds: Normal mid trimester US Obstetrical Complications: None Medical Complications: None Delivery History Hx Blood Disorders: No Adverse Rxn to Tranfusion: No Patient Past Medical History no chronic medical problems Social History/Family History 2nd Hand Smoke Exposure: No Immunizations Tetanus Booster (TDap): Unknown OB - Admission Exam Physical Exam HEENT: Moist Membranes Heart: Rhythm Normal Lungs: Clear Abdomen: Gravid Cervical Dilatation: 5cm Effacement: 75% Station: -3 Amniotic Fluid: Clear Heart Rate: 140's Accelerations: Accelerations Present Decelerations: No Decelerations Short Term Variability: Present Ammunition Components Inspector Variability: Average (6-25) Contractions on Admission: 6-10 Minutes Apart Intensity: Moderate OB - Assessment/Plan/Diagnosis Assessment Assessment: active labor Admission Dx 1. IUP at term 37w 6d Admission Status: Inpatient Order (span 2 midnights) Reason for Inpatient Admission: L&D Plan Plan: Induction Other Plan 1. Admit to L&D -anticipate soon -doesn't desire epidural CALLY DE SANTIAGO MD Dec 07, 2020 07:59
[2020-12-07 08:03] LABS: BASOPHILS % (AUTO) 1 % (0-10); EOSINOPHILS # (AUTO) 0.1 10^3/uL (0.0-0.3); EOSINOPHILS % (AUTO) 1 % (0-10); HEMATOCRIT 37 % (35-52); HEMOGLOBIN 12.2 g/dL (11.5-16.0); LYMPHOCYTES # (AUTO) 1.5 10^3/uL (1.0-4.0); LYMPHOCYTES % (AUTO) 21 % (12-44); MEAN CORPUSCULAR HEMOGLOBIN 26 pg (25-34); MEAN CORPUSCULAR HGB CONC 33 g/dL (32-36); MEAN CORPUSCULAR VOLUME 79 fL (80-99); MEAN PLATELET VOLUME 11.3 fL (9.0-12.2); MONOCYTES # (AUTO) 0.7 10^3/uL (0.0-1.0); MONOCYTES % (AUTO) 10 % (0-12); NEUTROPHILS # (AUTO) 4.9 10^3/uL (1.8-7.8); NEUTROPHILS % (AUTO) 67 % (42-75); PLATELET COUNT 204 10^3/uL (130-400); WHITE BLOOD COUNT 7.3 10^3/uL (4.3-11.0)
[2020-12-07] MEDS ORDERED: OXYTOCIN PRE-MIX DRIP 500 ML IV SCH ×2 (10:00→12:45)
--- NOTE | 2020-12-07 12:41 | OB Labor & Delivery Record ---
L&D History Date of Service Date of Service: Dec 07, 2020 History Expected Date of Delivery: Dec 22, 2020 Gestational Age in Weeks: 37 Hx : 4 Hx Para: 4 Complications Events: Routine care Operative Indications (Cesarea: N/A-Vaginal Delivery Intrapartal Events: None L&D Stage1 Stage One Onset of Labor - Date: Dec 07, 2020 Onset of Labor - Time: 08:00 Monitors and Tracing Monitor Mode: Internal Heart Rate: 135 Monitor Accelerations: Uniform Monitor Decelerations: None Station: 0 Halfway Variability: Average (6-10) Short Term Variability: Present Presentation: Vertex Vital Signs VS - Last 72 Hours, by Label 12/07/20 12/07/20 07:30 08:01 Temp 36.4 36.4 Pulse 62 62 Resp 20 20 Pulse Ox 98 98 O2 Delivery Room Air Room Air Signs of Distress by FHT Signs of Distress none Rupture of Membranes Spontaneous Ruture of Membrane: No Amniotic Membrane Rupture Time: 0746 Amniotic Membrane Fluid Desc.: Clear Vaginal Bleeding Description: None L&D Stage2 Stage Two Stage II Date: Dec 07, 2020 Stage II Time: 12:10 Monitors and Tracing Monitor Mode: Internal Heart Rate: 135 Monitor Accelerations: Uniform Manufacturing Quality Inspector Variability: Average (6-10) Short Term Variability: Present Position: Left Occiput Anterior Presentation: Vertex Signs of Distress by FHT Signs of Distress no Cord Descript/Complications Cord Vessel Description: 3 Vessels Delivery Type Delivery Method: Spontaneous Vaginal Anterior Shoulder: Left Episiotomy/Perineal Laceration Laceraction(s)/Extensions: No Condition of Infant Delivery 1 minute Comment: 9 5 minute Comment: 9 Condition of Condition of Infant: Living Exam: No Observed Abnormalities Resuscitation Resuscitation: N/A - Spontaneous Resp L&D Stage3 Stage Three Stage III Date: Dec 07, 2020 Stage III Time: 12:12 Pictocin Pitocin ml/hr: 125 Placenta Delivery Placenta Delivery: Spontaneous Delivery Summary Summary Estimated blood loss (mL): 150 Condition of Delivery Examined: Cervix Examined Post Hemorrhage: No Intervention Required none CALLY DE SANTIAGO MD Dec 07, 2020 12:41
[2020-12-07] MEDS ORDERED: TETANUS,DIPTH,PERTUSS P/F (BOOSTRIX) 0.5 ML VIAL IM ONE (12:45)
[2020-12-07] MEDS ORDERED: WITCH HAZEL(TUCKS) 40 EA JAR TOP PRN (12:45)
[2020-12-07] MEDS ORDERED: MEASLES,MUMPS,RUBELLA 1 EA INJ SQ ONE (12:45)
[2020-12-07] MEDS ORDERED: BENZOCAINE/MENTHOL (DERMOPLAST) 56 ML CAN TP PRN (12:45)
[2020-12-07] MEDS ORDERED: NALOXONE 0.4 MG/ML 1 ML (NARCAN) VIAL IV PRN (12:45)
[2020-12-07] MEDS ORDERED: CATHETER FLUSH 10 ML SYR IV SCH ×2 (14:00)
[2020-12-07] MEDS: IBUPROFEN 600 MG (MOTRIN) TAB PO SCH ×2 (16:03→23:37)
[2020-12-07] MEDS: DOCUSATE SODIUM 100 MG (COLACE) CAP PO SCH (20:10)
[2020-12-07] MEDS: ACETAMINOPHEN 500 MG TAB (TYLENOL) PO SCH (20:10)
[2020-12-08 03:38] VITALS: BP 127/62
[2020-12-08] MEDS: IBUPROFEN 600 MG (MOTRIN) TAB PO SCH ×3 (03:38→12:25)
[2020-12-08] MEDS: ACETAMINOPHEN 500 MG TAB (TYLENOL) PO SCH ×3 (03:38→12:25)
[2020-12-08 06:00] LABS: BASOPHILS % (AUTO) 0 % (0-10); EOSINOPHILS # (AUTO) 0.2 10^3/uL (0.0-0.3); EOSINOPHILS % (AUTO) 2 % (0-10); HEMATOCRIT 31 % (35-52); HEMOGLOBIN 10.1 g/dL (11.5-16.0); LYMPHOCYTES # (AUTO) 3.1 10^3/uL (1.0-4.0); LYMPHOCYTES % (AUTO) 30 % (12-44); MEAN CORPUSCULAR HEMOGLOBIN 26 pg (25-34); MEAN CORPUSCULAR HGB CONC 33 g/dL (32-36); MEAN CORPUSCULAR VOLUME 80 fL (80-99); MONOCYTES # (AUTO) 0.9 10^3/uL (0.0-1.0); MONOCYTES % (AUTO) 9 % (0-12); NEUTROPHILS % (AUTO) 58 % (42-75); PLATELET COUNT 169 10^3/uL (130-400); WHITE BLOOD COUNT 10.3 10^3/uL (4.3-11.0)
--- NOTE | 2020-12-08 07:26 | Discharge Summary ---
Diagnosis/Chief Complaint Date of Admission Dec 07, 2020 at 07:35 Date of Discharge December 08, 2020 Admission Diagnosis Admission Diagnosis 1. Intrauterine at term, 37 weeks 6 days Discharge Diagnosis 1. Intrauterine at term, 37 weeks 6 days Chief Complaint/HPI Chief Complaint/HPI 35-year-old 4 now term for who initially presented to labor and delivery in the morning of December 08 in active labor. She was dilated to 5 cm. Her GBS status was noted to be negative. She was followed at [facility] with unremarkable course Discharge Summary-OBS Procedures 1. Spontaneous vaginal delivery Discharge Physical Examination Allergies: Coded Allergies: No Known Drug Allergies (Unverified , 12/13/17) Vitals & I&Os Intake and Output 12/08/20 00:00 Intake Total 500 ml Balance 500 ml Vital Sign - Last 12Hours Date Time Temp Pulse Resp B/P (MAP) Pulse Ox O2 Delivery O2 Flow Rate FiO2 12/08/20 03:38 36.0 42 20 127/62 (83) 98 Room Air General Appearance: No Acute Distress Respiratory: Clear to Auscultation, Normal Air Movement Cardiovascular: Regular Rate Abdominal: Soft (with uterus firm) Psych/Mental Status: Mental Status NL Hospital Course Was the Problem List Reviewed?: Yes patient presented to labor and delivery in the morning of December 07, 2020 in active labor. She underwent amniotomy with clear fluid noted. She did not request any pain medication IV or epidural. She required low-dose Pitocin augmentation. Ultimately she went on to deliver a term viable male. Infant had Apgars of 9 at 1 minute and 9 at 5 minutes. There was no perineal lacerations. Following delivery she underwent routine care orders. She had no significant bleeding during the remainder of hospital stay. Her hemoglobin in the morning of December 08, 2020 was 10.1 and this was compared to initial hemo globin of 12.2. She was ambulatory and without any leg pain or shortness of breath. She was felt ready for dismissal during the afternoon of December 08, 2020. She will follow-up with myself at [facility] in 6 weeks. Labs Laboratory Tests 12/07/20 07:40: White Blood Count 7.3, Red Blood Count 4.75, Hemoglobin 12.2, Hematocrit 37, Mean Corpuscular Volume 79L, Mean Corpuscular Hemoglobin 26, Mean Corpuscular Hemoglobin Concent 33, Red Cell Distribution Width 18.6H, Platelet Count 204, Mean Platelet Volume 11.3, Immature Granulocyte % (Auto) 1, Neutrophils (%) (Auto) 67, Lymphocytes (%) (Auto) 21, Monocytes (%) (Auto) 10, Eosinophils (%) (Auto) 1, Basophils (%) (Auto) 1, Neutrophils # (Auto) 4.9, Lymphocytes # (Auto) 1.5, Monocytes # (Auto) 0.7, Eosinophils # (Auto) 0.1, Basophils # (Auto) 0.0, Immature Granulocyte # (Auto) 0.0 12/08/20 05:28: White Blood Count 10.3, Red Blood Count 3.90, Hemoglobin 10.1L, Hematocrit 31L, Mean Corpuscular Volume 80, Mean Corpuscular Hemoglobin 26, Mean Corpuscular Hem oglobin Concent 33, Red Cell Distribution Width 18.6H, Platelet Count 169, Mean Platelet Volume 12.0, Immature Granulocyte % (Auto) 1, Neutrophils (%) (Auto) 58, Lymphocytes (%) (Auto) 30, Monocytes (%) (Auto) 9, Eosinophils (%) (Auto) 2, Basophils (%) (Auto) 0, Neutrophils # (Auto) 6.0, Lymphocytes # (Auto) 3.1, Monocytes # (Auto) 0.9, Eosinophils # (Auto) 0.2, Basophils # (Auto) 0.0, Immature Granulocyte # (Auto) 0.1 Discharge Instructions to patient/family Please see electronic discharge instructions given to patient. Discharge Medications Reviewed and agree with Discharge Medication list on patient's Discharge Instruction sheet CALLY DE SANTIAGO MD Dec 08, 2020 07:26
--- NOTE | 2020-12-08 07:28 | Discharge Inst-Women's Service ---
Discharge Inst-Women's Serv Depart Medication/Instructions New, Converted or Re-Newed RX: Other Instructions May take [id number] ibuprofen 200 mg at 2 or 3 tablets every 6 hours if needed for cramps. Consults/Follow Up Additional Follow Up: Yes (Dr De Santiago at [facility] in 6 weeks.) Activity Activity: Activity as Tolerated Nothing Inside Vagina: No Hammett (for 6 weeks.) Diet Discharge Diet: Regular Diet Return to The Hospital For: as below Symptoms to Report to : Bleeding Excessive, Fever Over 101 Degrees F, Vaginal Discharge Foul For Any Problems or Questions: Contact Your Physician CALLY DE SANTIAGO MD Dec 08, 2020 07:28
[2020-12-08 08:30] VITALS: BP 132/60
[2020-12-08] MEDS: DOCUSATE SODIUM 100 MG (COLACE) CAP PO SCH (08:41)
[2020-12-08 12:25] VITALS: BP 122/59
[2020-12-08] MEDS ORDERED: PREN1TAB79 PO (15:13)
[2020-12-08 17:10] VITALS: BP 122/59
== END 2020-12-08 17:10 | disposition home or self-care (01) | DRG 807 ==
LOC: WSo 07:12 → LDRP 07:13 → WSo 07:35 → LDRP 13:55
PROVIDERS: ADMIT Family Medicine; ATTEND Family Medicine
PROC: 10E0XZZ Delivery of Products of Conception, External Approach (ICD-10-PCS; principal; 2020-12-07)
DX: O80 Encounter for full-term uncomplicated delivery (principal); Z37.0 Single live birth; Z3A.37 37 weeks gestation of pregnancy
CPT/HCPCS: 36415; 85025; 86850; 86900; 86901; 99212

== ENCOUNTER 2022-06-17 06:02 | Inpatient (IN) | payer SELFPAY ==
[2022-06-17] VITALS (20 sets, daily range): BP systolic 105–137; BP diastolic 51–73
[~2022-06-17] VITALS: Ht 161 cm; Wt 81.4 kg
[~2022-06-17 06:02] MED LIST changes: +PREN1TAB79 PO
--- OUTSIDE RECORDS SUMMARY | 2022-06-17 06:11 | XMS REPORT ---
Author Author [facility] Address Unknown Phone Unavailable Care Team Providers Care Government Affairs Researcher Name Role Phone JONNATHANCALLY PRASAD Unavailable PROBLEMS Type Condition ICD9-CM Code [id number] Code Onset Dates Condition S tatus W/U Status Risk SNOMED Code Notes Problem Encounter for test, result unknown Z32.00 confirmed 219252184 Problem care in first trimester Z34.91 conf irm Problem Second trimester Z34.92 confirmed [id number] Problem care in third trimester Z34.93 conf irmed [id number] Problem care in second trimester Z34.92 con firmed ALLERGIES No Known Allergies ENCOUNTERS from 1984 to 2022-05-29 Encounter Location Date Provider Diagnosis [facility] [address] [id number], [place] [address] Jun, CALLY DE SANTIAGO Second trimester pre gnancy Z34.92 ; First trimester Z34.91 and Encounter for supervision of normal in first trimester Z34.91 IMMUNIZATIONS Vaccine Route Administration Date Status PRIVATE TDAP (BOOSTRIX) IM Intramuscular May 30, 2018 Adminis tered PRIVATE TDAP (BOOSTRIX) IM Intramuscular Apr 13, 2022 Adminis tered PRIVATE FLULAVAL QUAD 0.5ML (6 MO AND UP) 2018 Unknown N ov 2017 Refused PRIVATE TDAP (BOOSTRIX) IM Intramuscular October 14, 2020 Adminis tered SOCIAL HISTORY Sex Assigned At : Social History Observation Description Sex Assigned At Unknown Alcohol Screen (Audit-C) Question Answer Notes Did you have a drink containing alcohol in the past year? No Points 0 Interpretation Negative Sexual History Question Answer Notes Had sex in the past 12 months (vaginal, oral, or anal)? Yes Have you ever had a Sexually transmitted disease? No with Men only Use protection? No PHQ2 Question Answer Notes In the last 2 weeks, how often have you had little interest or pleasure in doing things? Not at all In the last 2 weeks, how often have you been feeling down, depressed, or hopeless? Not at all Total PHQ2 Score 0 REASON FOR REFERRAL No Information VITAL SIGNS No information MEDICATIONS Medication SIG (Take, Route, Frequency, Duration) Notes Start Da te End Date Status Norethindrone Acet-Ethinyl Est 1-20 MG-MCG 1 tablet Or ally Once a day for 21 day(s) May, Not-Taking Active Iron (Ferrous Sulfate) 325 (65 fe) mg 1 tablet Orally Once a day for 90 days inconsistently taking Sep, Not-Taking PROCEDURES No Information RESULTS No Results REASON FOR VISIT U/S OB < 14 weeks- Domitila Enciso RT(R)(M)RDMS,RVT MEDICAL (GENERAL) HISTORY Type Description Date Surgical History No Surgical history information Hospitalization History childbirth Goals Section No Information Health Concerns No Information MEDICAL EQUIPMENT No Information MENTAL STATUS No Information FUNCTIONAL STATUS No Information ASSESSMENTS Encounter Date Diagnosis Assessment Notes Treatment Notes Treatm ent Clinical Notes Jun, Second trimester (ICD-10 - Z34 .92) Jun, First trimester (ICD-10 - Z34. 91) Jun, Encounter for supervision of normal in first trimester (ICD-10 - Z34.91) PLAN OF TREATMENT Next Appt Details Provider Name:CALLY DE SANTIAGO, 06-01 03:45:00 PM, [address] , [place], [address], Provider Name:JOLYNN HAYES, 2022-07 02:00:00 PM, [address] [facility], [id number], [place], [address], Insurance Providers Payer Name Payer Address Payer Phone Insured Name Patient Relati onship to Insured Coverage Start Date Coverage End Date Subscriber Number Group Nu mber MEDICAID OF [place] [address] [facility] [id number] Bogdan Glass Self - patient is the insured 2020 [id number] So bra MEDICATIONS ADMINISTERED Medication Instructions Date of Administration Dosage Depo-Provera Dec, 150 mg
--- OUTSIDE RECORDS SUMMARY | 2022-06-17 06:12 | XMS REPORT ---
Author Author [facility] Address Unknown Phone Unavailable Care Team Providers Care Neck Band Setter Name Role Phone JONNATHANCALLY PRASAD Unavailable PROBLEMS Type Condition ICD9-CM Code [id number] Code Onset Dates Condition S tatus W/U Status Risk SNOMED Code Notes Problem Encounter for test, result unknown Z32.00 confirmed [id number] Problem care in first trimester Z34.91 conf irm Problem Second trimester Z34.92 confirmed [id number] Problem care in third trimester Z34.93 conf irmed [id number] Problem care in second trimester Z34.92 con firmed ALLERGIES No Known Allergies ENCOUNTERS from 1984 to 2022-05-17 Encounter Location Date Provider Diagnosis [facility] [address] [facility] [id number], [place] [address] Jun, CALLY DE SANTIAGO IMMUNIZATIONS Vaccine Route Administration Date Status PRIVATE TDAP (BOOSTRIX) IM Intramuscular October 14, 2020 Adminis tered PRIVATE TDAP (BOOSTRIX) IM Intramuscular Apr 13, 2022 Adminis tered PRIVATE TDAP (BOOSTRIX) IM Intramuscular May 30, 2018 Adminis tered PRIVATE FLULAVAL QUAD 0.5ML (6 MO AND UP) 2018 Unknown N 2017 Refused SOCIAL HISTORY Sex Assigned At : Social [...] a day for 21 day(s) May, Not-Taking Iron (Ferrous Sulfate) 325 (65 fe) mg 1 tablet Orally Once a day for 90 days inconsistently taking Sep, Not-Taking Active PROCEDURES No Information RESULTS No Results REASON FOR VISIT OB Flowsheet History MEDICAL (GENERAL) HISTORY Type Description Date Surgical History No know Surgical history Hospitalization History childbirth Goals Section No Information Health Concerns No Information MEDICAL EQUIPMENT No Information MENTAL STATUS No Information FUNCTIONAL STATUS No Information ASSESSMENTS No Information PLAN OF TREATMENT Next Appt Details Provider Name:CUONG Molina DOMENICA, 2022-05-24 0 2:30:00 PM, [address] [facility], [id number], [address], Provider Name:CALLY DE SANTIAGO, 05-25 03:15:00 PM, [address] [facility], [place], [address], Provider Name:JOLYNN HAYES, 2022-07 02:00:00 PM, [address] [facility], [id number], [address], Insurance Providers Payer Name Payer Address Payer Phone Insured Name Patient Relati onship to Insured Coverage Start Date Coverage End Date Subscriber Number Group Nu mber MEDICAID OF [place] [address] [facility] [id number] Bogdan Glass Self - patient is the insured 2020 [id number] So bra MEDICATIONS ADMINISTERED Medication Instructions Date of Administration Dosage Depo-Provera Dec, 150 mg
--- OUTSIDE RECORDS SUMMARY | 2022-06-17 06:12 | XMS REPORT ---
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 Name Role Phone ELI BARROS Unavailable PROBLEMS Type Condition ICD9-CM Code [id number] Code Onset Dates Condition S tatus W/U Status Risk SNOMED Code Notes Problem Encounter for test, result unknown Z32.00 confirmed 186153326 Problem care in first trimester Z34.91 conf irm Problem Second trimester Z34.92 confirmed [id number] Problem care in third trimester Z34.93 conf irmed [id number] Problem care in second trimester Z34.92 con firmed ALLERGIES No Known Allergies ENCOUNTERS from 1984 to 2022-05-07 Encounter Location Date Provider Diagnosis [facility] [address] [facility] [id number] [address] Jun, ELI BARROS Encounter for pregna ncy test, result unknown Z32.00 IMMUNIZATIONS Vaccine Route Administration Date Status PRIVATE FLULAVAL QUAD 0.5ML (6 MO AND UP) 2018 Unknown N 2017 Refused PRIVATE TDAP (BOOSTRIX) IM Intramuscular Apr 13, 2022 Adminis tered PRIVATE TDAP (BOOSTRIX) IM Intramuscular October 14, 2020 Adminis tered PRIVATE TDAP (BOOSTRIX) IM Intramuscular May 30, 2018 Adminis tered SOCIAL HISTORY Sex Assigned At [...] Notes Start Da te End Date Status Active Iron (Ferrous Sulfate) 325 (65 fe) mg 1 tablet Orally Once a day for 90 days inconsistently taking Sep, Not-Taking Norethindrone Acet-Ethinyl Est 1-20 MG-MCG 1 tablet Or ally Once a day for 21 day(s) May, Not-Taking PROCEDURES No Information RESULTS No Results REASON FOR VISIT urine test MEDICAL (GENERAL) HISTORY Type Description Date Surgical History No know Surgical history Hospitalization History childbirth Goals Section No Information Health Concerns No Information MEDICAL EQUIPMENT No Information MENTAL STATUS No Information FUNCTIONAL STATUS No Information ASSESSMENTS Encounter Date Diagnosis Assessment Notes Treatment Notes Treatm ent Clinical Notes Jun, Encounter for test, result unk nown (ICD-10 - Z32.00) PLAN OF TREATMENT Next Appt Details Provider Name:CALLY DE SANTIAGO, 05-11 02:30:00 PM, [address] [facility], [place], [address], Provider Name:CUONG METZGER, 2022-05-24 0 2:30:00 PM, [address] [facility], [id number], [address], Provider Name:JOLYNN HAYES, 2022-07 02:00:00 PM, [address] [facility], [id number], [address], Insurance Providers Payer Name Payer Address Payer Phone Insured Name Patient Relati onship to Insured Coverage Start Date Coverage End Date Subscriber Number Group Nu mber MEDICAID OF [place] [address] [facility] [id number] Bogdan Glass Self - patient is the insured 2020 [id number] So bra MEDICATIONS ADMINISTERED Medication Instructions Date of Administration Dosage Depo-Provera Dec, 150 mg
--- OUTSIDE RECORDS SUMMARY | 2022-06-17 06:12 | XMS REPORT ---
Author Author [facility] Address Unknown Phone Unavailable Care Team Providers Care Entry Level Programmer Name Role Phone JONNATHANCALLY PRASAD Unavailable PROBLEMS Type Condition ICD9-CM Code LCF12-IV Code Onset Dates Condition S tatus W/U Status Risk SNOMED Code Notes Problem Encounter for test, result unknown Z32.00 confirmed [id number] Problem care in first trimester Z34.91 conf irm Problem Second trimester Z34.92 confirmed 50752140 Problem care in third trimester Z34.93 conf irmed [id number] Problem care in second trimester Z34.92 con firmed ALLERGIES No Known Allergies ENCOUNTERS from 1984 to 2022-05-18 Encounter Location Date Provider Diagnosis [facility] [address] [facility] [id number] [address], [place] [address] Jun, CALLY DE SANTIAGO IMMUNIZATIONS Vaccine Route Administration Date Status PRIVATE TDAP (BOOSTRIX) IM Intramuscular October 14, 2020 Adminis tered PRIVATE TDAP (BOOSTRIX) IM Intramuscular Apr 13, 2022 Adminis tered PRIVATE FLULAVAL QUAD 0.5ML (6 MO AND UP) 2018 Unknown N 2017 Refused PRIVATE TDAP (BOOSTRIX) IM Intramuscular May 30, [...] Information RESULTS No Results REASON FOR VISIT Case Management, Shelter Monitor Visit MEDICAL (GENERAL) HISTORY Type Description Date Surgical History No know Surgical history Hospitalization History childbirth Goals Section No Information Health Concerns No Information MEDICAL EQUIPMENT No Information MENTAL STATUS No Information FUNCTIONAL STATUS No Information ASSESSMENTS No Information PLAN OF TREATMENT Next Appt Details Provider Name:CUONG Molina DOMENICA, 2022-05-24 0 2:30:00 PM, [address] [facility], [id number], [address], Provider Name:CALLY DE SANTIAGO, 05-25 03:15:00 PM, [address] [place], [address], Provider Name:JOLYNN HAYES, 2022-07 02:00:00 PM, [address] [facility], [id number], [place], [address], Insurance Providers Payer Name Payer Address Payer Phone Insured Name Patient Relati onship to Insured Coverage Start Date Coverage End Date Subscriber Number Group Nu mber MEDICAID OF [place] [address] [facility] [address] Bogdan Glass Self - patient is the insured 2020 [id number] So bra MEDICATIONS ADMINISTERED Medication Instructions Date of Administration Dosage Depo-Provera Dec, 150 mg
--- OUTSIDE RECORDS SUMMARY | 2022-06-17 06:12 | XMS REPORT ---
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 Name Role Phone JONNATHANLUZ PavonEL Unavailable PROBLEMS Type Condition ICD9-CM Code DQZ02-OH Code Onset Dates Condition S tatus W/U Status Risk SNOMED Code Notes Problem Encounter for test, result unknown Z32.00 confirmed [id number] Problem care in first trimester Z34.91 conf irm Problem Second trimester Z34.92 confirmed [id number] Problem care in third trimester Z34.93 conf irmed [id number] Problem care in second trimester Z34.92 con firmed ALLERGIES No Known Allergies ENCOUNTERS from 1984 to 2022-05-23 Encounter Location Date Provider Diagnosis [facility] [address] [facility] [id number] [address], [place] [address] Jun, CALLY DE SANTIAGO Second trimester pre [...] REASON FOR REFERRAL No Information VITAL SIGNS Height 5'3" in Jun, Weight 167.0 lbs Jun, Weight-kg 75.75 kg Jun, Temperature 97.6 degrees Fahrenheit Jun, Heart Rate 65 bpm Jun, Respiratory Rate 18 bpm Jun, Oximetry 98 % Jun, BMI 29.583 kg/m2 Jun, Blood pressure systolic 111 mmHg Jun, Blood pressure diastolic 62 mmHg Jun, MEDICATIONS Medication SIG (Take, Route, Frequency, Duration) Notes Start Da te End Date Status Norethindrone Acet-Ethinyl Est 1-20 MG-MCG 1 tablet Or ally Once a day for 21 day(s) May, Not-Taking Iron (Ferrous Sulfate) 325 (65 fe) mg 1 tablet Orally Once a day for 90 days inconsistently taking Sep, Not-Taking Active PROCEDURES from 1984 to 2022-05-23 Procedure Date Ordered Date Performed Result Body Site ROUTINE VENIPUNCTURE 2020-06-17 N/A RESULTS No Results REASON FOR VISIT OB-intake, UA long dip, urine culture, UDS, pelvic exam/swabs/paps MEDICAL (GENERAL) HISTORY Type Description Date Surgical [...] trimester (ICD-10 - Z34.91) PLAN OF TREATMENT Pending Tests Test Name Order Date HEP B SURFACE ANTIGEN ([facility]) 2020-06-17 HIV Screening ([facility]) 2020-06-17 SYPHILIS ([facility]) 2020-06-17 Next Appt Details 4 Weeks Reason: Provider Name:CUONG Molina DOMENICA, 2022-05-24 0 2:30:00 PM, [address] [facility], [id number], [place], [address], Provider Name:CALLY DE SANTIAGO, 05-25 03:15:00 PM, [address], [place], [address], Provider Name:JOLYNN HAYES, 2022-07 02:00:00 PM, [address] [facility], [id number], [place], [address], Insurance Providers Payer Name Payer Address Payer Phone Insured Name Patient Relati onship to Insured Coverage Start Date Coverage End Date Subscriber Number Group Nu mber MEDICAID OF [place] [address] [facility] [id number] Bogdan Glass Self - patient is the insured 2020 [id number] So bra MEDICATIONS ADMINISTERED Medication Instructions Date of Administration Dosage Depo-Provera Dec, 150 mg
[2022-06-17] MEDS ORDERED: D5 LR IV SOLUTION 1,000 ML IV SCH (06:15)
[2022-06-17] MEDS ORDERED: MINERAL OIL 30 ML UDC TOP PRN (06:15)
[2022-06-17] MEDS ORDERED: LIDOCAINE 1% INJ 20 ML VIAL IJ PRN (06:15)
[2022-06-17] MEDS ORDERED: D5 LR IV SOLUTION 1,000 ML IV ONE (06:24)
[2022-06-17 06:33] LABS: BASOPHILS % (AUTO) 0 % (0-10); EOSINOPHILS # (AUTO) 0.1 10^3/uL (0.0-0.3); EOSINOPHILS % (AUTO) 2 % (0-10); HEMATOCRIT 40 % (35-52); HEMOGLOBIN 13.9 g/dL (11.5-16.0); LYMPHOCYTES # (AUTO) 2.1 10^3/uL (1.0-4.0); LYMPHOCYTES % (AUTO) 28 % (12-44); MEAN CORPUSCULAR HEMOGLOBIN 28 pg (25-34); MEAN CORPUSCULAR HGB CONC 35 g/dL (32-36); MEAN CORPUSCULAR VOLUME 81 fL (80-99); MONOCYTES # (AUTO) 0.8 10^3/uL (0.0-1.0); MONOCYTES % (AUTO) 10 % (0-12); NEUTROPHILS # (AUTO) 4.6 10^3/uL (1.8-7.8); NEUTROPHILS % (AUTO) 60 % (42-75); PLATELET COUNT 206 10^3/uL (130-400); WHITE BLOOD COUNT 7.6 10^3/uL (4.3-11.0)
--- NOTE | 2022-06-17 07:04 | History & Physical-OB ---
OB - Chief Complaint & HPI Date/Time Date of Admission: Date of Admission: Jun 17, 2022 at 06:02 Date seen by a Provider: Jun 17, 2022 Time Seen by a Provider: 06:30 Chief Complaint/History OB-Reason for Admission/Chief: Induction of Labor Hx : 5 Hx Para: 3 Expected Date of Delivery: Jun 19, 2022 Gestational Age in Weeks: 39 Gestational Age in Days: 5 Admission Nurse Assessment Rev: Yes History of Labs GBS negative Allergies and Home Medications Allergies Coded Allergies: No Known Drug Allergies (Unverified , 12/13/17) Patient Home Medication List Home Medication List Reviewed: Yes Vit W-Ca,Fe,FA(<1 mg) ( Vitamins) 1 Each Tablet, 1 EACH PO DAILY, (Reported) Entered as Reported by: STEPHANY BERKOWITZ on 12/08/20 1513 OB - History Hx of Present Care: Yes Ultrasounds: Normal mid trimester US Obstetrical Complications: None Medical Complications: None Delivery History Hx Blood Disorders: No Adverse Rxn to Tranfusion: No Patient Past Medical History no chronic medical problems Social History/Family History 2nd Hand Smoke Exposure: No Immunizations Influenza Vaccine Up-to-Date: No; Not Current Hepatitis A: Yes Hepatitis B: Yes Tetanus Booster (TDap): Unknown OB - Admission Exam Physical Exam Vitals: Vital Signs 06/17/22 06:39 Temp 36.6 Pulse 59 Resp 18 Pulse Ox 100 O2 Delivery Room Air HEENT: Moist Membranes Heart: Rhythm Normal Lungs: Clear Abdomen: Gravid Cervical Dilatation: 2cm Effacement: 50% Station: -3 Membranes: Intact Heart Rate: 140's Accelerations: Accelerations Present Short Term Variability: Present Film Librarian Variability: Average (6-25) Contractions on Admission: >10 Minutes Apart Intensity: Mild Jang Scoring Tool (Modified) Dilation (cm): 1-2cm (1) Effacement (%): 31-51% (1) Descent/Station: -3 (0) Cervix Consistency: Soft (2) Cervix Position: Middle/Mid-Position (1) Add 1 point for: Each previous vaginal delivery (1) Jang Score: 8 Labs Laboratory Tests Test 06/17/22 06:15 Range/Units White Blood Count 7.6 4.3-11.0 10^3/uL Red Blood Count 4.95 3.80-5.11 10^6/uL Hemoglobin 13.9 11.5-16.0 g/dL Hematocrit 40 35-52 % Mean Corpuscular Volume 81 80-99 fL Mean Corpuscular Hemoglobin 28 25-34 pg Mean Corpuscular Hemoglobin Concent 35 32-36 g/dL Red Cell Distribution Width 15.8 H 10.0-14.5 % Platelet Count 206 130-400 10^3/uL Mean Platelet Volume 11.0 9.0-12.2 fL Immature Granulocyte % (Auto) 1 % Neutrophils (%) (Auto) 60 42-75 % Lymphocytes (%) (Auto) 28 12-44 % Monocytes (%) (Auto) 10 0-12 % Eosinophils (%) (Auto) 2 0-10 % Basophils (%) (Auto) 0 0-10 % Neutrophils # (Auto) 4.6 1.8-7.8 10^3/uL Lymphocytes # (Auto) 2.1 1.0-4.0 10^3/uL Monocytes # (Auto) 0.8 0.0-1.0 10^3/uL Eosinophils # (Auto) 0.1 0.0-0.3 10^3/uL Basophils # (Auto) 0.0 0.0-0.1 10^3/uL Immature Granulocyte # (Auto) 0.1 0.0-0.1 10^3/uL OB - Assessment/Plan/Diagnosis Assessment Assessment: induction of labor Admission Dx 1. IUP at term 39w5d Admission Status: Inpatient Order (span 2 midnights) Reason for Inpatient Admission: Induction of labor at term (patient request) Plan Plan: Induction Induction Method: AROM Other Plan -pitocin as necessary CALLY DE SANTIAGO MD Jun 17, 2022 07:04
[2022-06-17] MEDS ORDERED: OXYTOCIN PRE-MIX DRIP 500 ML IV SCH ×2 (07:15→11:15)
[2022-06-17] MEDS ORDERED: OXYTOCIN PRE-MIX DRIP 500 ML IV ONE (07:27)
[2022-06-17] MEDS ORDERED: FLU QUADRIvalent (6 months+) 60 mcg/0.5 ml 2022-23 (Fluzone) IM ONE (07:45)
[2022-06-17] MEDS ORDERED: BENZOCAINE/MENTHOL (DERMOPLAST) 56 ML CAN TP PRN (11:15)
[2022-06-17] MEDS ORDERED: WITCH HAZEL(TUCKS) 40 EA JAR TOP PRN (11:15)
[2022-06-17] MEDS ORDERED: NALOXONE 0.4 MG/ML 1 ML (NARCAN) VIAL IV PRN (11:15)
[2022-06-17] MEDS ORDERED: MEASLES,MUMPS,RUBELLA 1 EA INJ SQ ONE (11:15)
[2022-06-17] MEDS ORDERED: TETANUS,DIPTH,PERTUSS P/F (BOOSTRIX) 0.5 ML VIAL IM ONE (11:15)
--- NOTE | 2022-06-17 11:15 | OB Labor & Delivery Record ---
L&D History Date of Service Date of Service: Jun 17, 2022 History Expected Date of Delivery: Jun 19, 2022 Gestational Age in Weeks: 39 Hx : 6 Hx Para: 5 Complications Events: Routine care Operative Indications (Cesarea: N/A-Vaginal Delivery Intrapartal Events: None L&D Stage1 Stage One Onset of Labor - Date: Jun 17, 2022 Onset of Labor - Time: 06:30 Monitors and Tracing Monitor Mode: Internal Heart Rate: 125 Monitor Accelerations: Uniform Monitor Decelerations: None Station: -2 Short Term Variability: Present Presentation: Vertex Vital Signs VS - Last 72 Hours, by Label 06/17/22 06/17/22 06/17/22 06/17/22 06:39 07:35 08:17 08:34 Temp 36.6 36.3 Pulse 59 57 57 55 Resp 18 20 20 20 B/P (MAP) 115/65 (82) 124/62 (82) 120/60 (80) Pulse Ox 100 97 O2 Delivery Room Air Room Air Room Air Room Air 06/17/22 06/17/22 06/17/22 06/17/22 08:47 09:03 09:18 09:32 Pulse 62 65 55 56 Resp 20 20 20 20 B/P (MAP) 133/71 (91) 133/73 (93) 123/65 (84) 123/67 (85) O2 Delivery Room Air Room Air Room Air Room Air Signs of Distress by FHT Signs of Distress no Rupture of Membranes Spontaneous Ruture of Membrane: No Amniotic Membrane Rupture Time: 0630 Amniotic Membrane Fluid Desc.: Clear Vaginal Bleeding Description: None Induction/Anesthesia Medications none L&D Stage2 Stage Two Stage II Date: Jun 17, 2022 Stage II Time: 10:23 Monitors and Tracing Monitor Mode: Internal Heart Rate: 125 Monitor Accelerations: Uniform Monitor Decelerations: None Mcc Variability: Average (6-10) Short Term Variability: Present Position: Left Occiput Anterior Presentation: Vertex Signs of Distress by FHT Signs of Distress no Cord Descript/Complications Cord Vessel Description: 3 Vessels Delivery Type Infant Delivery Method: Spontaneous Vaginal Anterior Shoulder: Left Episiotomy/Perineal Laceration Laceraction(s)/Extensions: No Condition of Delivery 1 minute Comment: 8 5 minute Comment: 9 Condition of Condition of : Living Exam: No Observed Abnormalities Resuscitation Resuscitation: N/A - Spontaneous Resp L&D Stage3 Stage Three Stage III Date: Jun 17, 2022 Stage III Time: 10:28 Pictocin Pitocin Administration mu/min: 10 Pitocin ml/hr: 10 Placenta Delivery Placenta Delivery: Spontaneous Delivery Summary Summary Estimated blood loss (mL): 150 Condition of Delivery Examined: Cervix Examined Post Hemorrhage: No Intervention Required none CALLY DE SANTIAGO MD Jun 17, 2022 11:15
[2022-06-17] MEDS ORDERED: CATHETER FLUSH 10 ML SYR IV SCH ×2 (14:00)
[2022-06-17] MEDS: IBUPROFEN 600 MG (MOTRIN) TAB PO SCH ×2 (14:41→20:03)
[2022-06-17] MEDS: ACETAMINOPHEN 500 MG TAB (TYLENOL) PO SCH ×2 (14:41→20:03)
[2022-06-17] MEDS: DOCUSATE SODIUM 100 MG (COLACE) CAP PO SCH (20:03)
[2022-06-18 00:15] VITALS: BP 94/41
[2022-06-18] MEDS: IBUPROFEN 600 MG (MOTRIN) TAB PO SCH ×2 (02:10→08:15)
[2022-06-18] MEDS: ACETAMINOPHEN 500 MG TAB (TYLENOL) PO SCH ×2 (02:10→08:15)
[2022-06-18 05:00] VITALS: BP 101/47
[2022-06-18 05:12] LABS: BASOPHILS % (AUTO) 0 % (0-10); EOSINOPHILS # (AUTO) 0.1 10^3/uL (0.0-0.3); EOSINOPHILS % (AUTO) 2 % (0-10); HEMATOCRIT 35 % (35-52); LYMPHOCYTES # (AUTO) 2.4 10^3/uL (1.0-4.0); LYMPHOCYTES % (AUTO) 29 % (12-44); MEAN CORPUSCULAR HEMOGLOBIN 28 pg (25-34); MEAN CORPUSCULAR HGB CONC 34 g/dL (32-36); MEAN CORPUSCULAR VOLUME 82 fL (80-99); MONOCYTES # (AUTO) 0.9 10^3/uL (0.0-1.0); MONOCYTES % (AUTO) 10 % (0-12); NEUTROPHILS # (AUTO) 4.8 10^3/uL (1.8-7.8); NEUTROPHILS % (AUTO) 58 % (42-75); PLATELET COUNT 172 10^3/uL (130-400); WHITE BLOOD COUNT 8.3 10^3/uL (4.3-11.0)
[2022-06-18 08:15] VITALS: BP 97/49
[2022-06-18] MEDS: DOCUSATE SODIUM 100 MG (COLACE) CAP PO SCH (08:15)
--- NOTE | 2022-06-18 09:55 | Discharge Inst-Women's Service ---
Discharge Inst-Women's Serv Depart Medication/Instructions New, Converted or Re-Newed RX: Other Instructions May take ibuprofen lpxl-[id number] 200 mg and take 2 or 3 every 6 hours as needed for pain or cramps Problems Reviewed?: Yes Consults/Follow Up Additional Follow Up: Yes (Dr De Santiago in 6 weeks at [facility]) Activity Driving Instructions: No Driving for 1 Week Nothing Inside Vagina: No [place]ing (For 6 weeks) Diet Discharge Diet: Regular Diet Return to The Hospital For: As below Symptoms to Report to : Bleeding Excessive, Fever Over 101 Degrees F, Vaginal Discharge Foul For Any Problems or Questions: Contact Your Physician CALLY DE SANTIAGO MD Jun 18, 2022 09:55
--- NOTE | 2022-06-18 09:58 | Discharge Summary ---
Diagnosis/Chief Complaint Date of Admission Jun 17, 2022 at 06:02 Date of Discharge June 18, 2022 Admission Diagnosis Admission Diagnosis 1. Intrauterine at 39 weeks gestation Discharge Diagnosis 1. Intrauterine at 39 weeks gestation Chief Complaint/HPI Chief Complaint/HPI 37-year-old 6 term 5 and L5 to initially presented for induction of labor at 39 weeks 3 days gestation. She was without any significant contractions upon presentation. Her GBS status was noted to be negative at 36 weeks. Discharge Summary-OBS Procedures 1. Spontaneous vaginal delivery Discharge Physical Examination Allergies: Coded Allergies: No Known Drug Allergies (Unverified , 12/13/17) Vitals & I&Os Vital Sign - Last 12Hours Date Time Temp Pulse Resp B/P (MAP) Pulse Ox O2 Delivery O2 Flow Rate FiO2 06/18/22 08:15 36.7 54 18 97/49 (65) 98 Room Air General Appearance: No Acute Distress Respiratory: Clear to Auscultation Cardiovascular: Regular Rate Abdominal: Soft (With uterus firm) Hospital Course Was the Problem List Reviewed?: Yes patient was admitted there on the morning of June 17, 2022. She underwent amniotomy with placement of scalp electrode. She required low-dose Pitocin augmentation. Eventually she achieved a contraction pattern and went on to deliver a term viable female. Infant received Apgars of 8 at 1 minute and 9 at 5 minutes. Following delivery she underwent routine care orders. She had no complications during the remainder of hospital stay. Her hemoglobin in the morning of June 18 was 12.0 compared to admission of 13.9. She tolerated regular diet and was felt ready for dismissal during the early afternoon of June 18. She will follow up with myself in 6 weeks at [facility]. Labs Laboratory Tests 06/18/22 04:58: White Blood Count 8.3, Red Blood Count 4.27, Hemoglobin 12.0, Hematocrit 35, M maria de jesus Corpuscular Volume 82, Mean Corpuscular Hemoglobin 28, Mean Corpuscular Hemoglobin Concent 34, Red Cell Distribution Width 16.2H, Platelet Count 172, Mean Platelet Volume 11.0, Immature Granulocyte % (Auto) 1, Neutrophils (%) (Auto) 58, Lymphocytes (%) (Auto) 29, Monocytes (%) (Auto) 10, Eosinophils (%) (Auto) 2, Basophils (%) (Auto) 0, Neutrophils # (Auto) 4.8, Lymphocytes # (Auto) 2.4, Monocytes # (Auto) 0.9, Eosinophils # (Auto) 0.1, Basophils # (Auto) 0.0, Immature Granulocyte # (Auto) 0.1 Discharge Instructions to patient/family Please see electronic discharge instructions given to patient. Discharge Medications Reviewed and agree with Discharge Medication list on patient's Discharge Instruction sheet CALLY DE SANTIAGO MD Jun 18, 2022 09:58
== END 2022-06-18 13:10 | disposition home or self-care (01) | DRG 807 ==
LOC: LDRP 06:02
PROVIDERS: ADMIT Family Medicine; ATTEND Family Medicine
PROC: 10E0XZZ Delivery of Products of Conception, External Approach (ICD-10-PCS; principal; 2022-06-17)
PROC: 10907ZC Drainage of Amniotic Fluid, Therapeutic from Products of Conception, Via Natural or Artificial Opening (ICD-10-PCS; 2022-06-17)
PROC: 10H073Z Insertion of Monitoring Electrode into Products of Conception, Via Natural or Artificial Opening (ICD-10-PCS; 2022-06-17)
DX: O80 Encounter for full-term uncomplicated delivery (principal); Z37.0 Single live birth; Z3A.39 39 weeks gestation of pregnancy
CPT/HCPCS: 36415; 85025; 86780; 86850; 86900; 86901

== ENCOUNTER 2023-02-04 10:38 | Emergency (ER) | payer SELFPAY ==
[~2023-02-04] VITALS: Ht 160 cm; Wt 75.0 kg
--- NOTE | 2023-02-04 10:53 | ED General ---
General Chief Complaint: Cardiac/General Problems Stated Complaint: LOW HEART RATE Nursing Triage Note: PT ARRIVED PER EMS, PT SENT FROM [facility] W BRADYCARDIA AND HYPOTENSION. PT DENIES ANY SX, PT DOES NOT SPEAK TURKS AND [place]. [employer] USED. PT HAS #18 JEJESSICAO W NS INFUSING IN L AC BY [facility] Source of Information: Patient Exam Limitations: No Limitations History of Present Illness Date Seen by Provider: Feb 04, 2023 Time Seen by Provider: 10:40 Initial Comments Patient is a 37-year-old female who presents to the emergency room by EMS for concern of bradycardia. Patient is an otherwise healthy individual who presented to [facility] today with a chief complaint of red painful right eye. When they did vital signs on the patient at the clinic they noted her heart rate in the upper 30s low 40s. Patient remains completely asymptomatic of any lightheadedness, dizziness, shortness of breath, weakness or near syncope. She has never been told she has low heart rate before. She takes no medications at home. Does not smoke, drink alcohol or do any illicit drugs. Last menstrual cycle was 2 weeks ago. She is not on control. She complains of red painful right eye after being hit in the eye 1 week ago with a soccer ball. Initially was asymptomatic until Monday of the last week when she started developing a red painful eye. She endorses a little blurry vision from the right eye. Has not been using any medications in the eye. Timing/Duration: Other (Red eye for 4 days) Severity: Moderate Associated Systoms: Denies Symptoms Allergies and Home Medications Allergies Coded Allergies: No Known Drug Allergies (Unverified , 12/13/17) Patient Home Medication List Home Medication List Reviewed: Yes Prednisolone Acetate/Pf (Prednisolone Acet 1% Eye Drop) 1 % Drops.susp, 2 DROPS OP Q2H Prescribed by: PRINCE HOLLEY on 02/04/23 1222 Vit W-Ca,Fe,FA(<1 mg) ( Vitamins) 1 Each Tablet, 1 EACH PO DAILY, (Reported) Entered as Reported by: STEPHANY BERKOWITZ on 12/08/20 1513 Review of Systems Review of Systems Constitutional: see HPI EENTM: blurred vision (right eye), eye pain (right eye), vision loss (brief last weekend after hit in the eye) Respiratory: no symptoms reported Cardiovascular: no symptoms reported Gastrointestinal: nausea Genitourinary: no symptoms reported Musculoskeletal: no symptoms reported Skin: no symptoms reported Psychiatric/Neurological: Headache (right temporal) Past Iwvvxrl-Qylmsu-Aggcov Hx Patient Social History Tobacco Use?: No Substance use?: No Alcohol Use?: No Pt feels they are or have been: No Immunizations Up To Date Tetanus Booster (TDap): Unknown Seasonal Allergies Seasonal Allergies: No Past Medical History Surgery/Hospitalization HX: DENIES MEDICAL HX Surgeries: No Respiratory: No Cardiac: No Neurological: No Last Menstrual Period: Jan 21, 2023 Genitourinary: No Gastrointestinal: No Musculoskeletal: No Endocrine: No HEENT: No Cancer: No Psychosocial: No Integumentary: No Blood Disorders: No Adverse Reaction/Blood Tranf: No Family Medical History Patient reports no known family medical history. Physical Exam Vital Signs Vital Signs - First Documented 02/04/23 02/04/23 10:40 12:33 Pulse 40 Resp 16 B/P (MAP) 142/75 (97) Pulse Ox 99 O2 Delivery Room Air Capillary Refill : Less Than 3 Seconds Height, Weight, BMI Height: 5'4.00" Weight: 173lbs. 0.0oz. [id number]; 29.00 BMI Method:Stated General Appearance: No Apparent Distress, WD/WN HEENT: Other (Patient has diffuse scleral injection to the right eye. It is tender to touch. Her pupil is sluggish, ocular muscles are intact. No tenderness around the orbit) Neck: Full Range of Motion, Normal Inspection, Non Tender, Supple Respiratory: Lungs Clear, Normal Breath Sounds, No Accessory Muscle Use, No Respiratory Distress Cardiovascular: Normal Peripheral Pulses, Bradycardia (38bpm) Gastrointestinal: Non Tender, Soft Extremity: Normal Capillary Refill, Normal Inspection, Normal Range of Motion Neurologic/Psychiatric: Alert, Oriented x3, No Motor/Sensory Deficits, Normal Mood/Affect, sound tester II-XII Norm as Tested Skin: Normal Color, Warm/Dry Procedures/Interventions Eye : Location: right eye Anesthesia (gtts): Tetracaine Progress/Procedure Conclusion Patient had application of tetracaine for anesthesia, fluorescein staining revealed no significant uptake over the cornea/sclera. No obvious foreign body. Her visual acuity was noted to be 20/20 in each eye and together. Tonometry revealed pressures of 17. Progress/Results/Core Measures Suspected Sepsis SIRS Temperature: Pulse: 40 Respiratory Rate: 16 Laboratory Tests 02/04/23 10:50: White Blood Count 7.6 Blood Pressure 142 /75 Mean: 97 Laboratory Tests 02/04/23 10:50: Creatinine 0.74, Platelet Count 200 Results/Orders Lab Results Laboratory Tests Test 02/04/23 10:50 Range/Units White Blood Count 7.6 4.3-11.0 10^3/uL Red Blood Count 4.45 3.80-5.11 10^6/uL Hemoglobin 13.0 11.5-16.0 g/dL Hematocrit 39 35-52 % Mean Corpuscular Volume 87 80-99 fL Mean Corpuscular Hemoglobin 29 25-34 pg Mean Corpuscular Hemoglobin Concent 34 32-36 g/dL Red Cell Distribution Width 13.3 10.0-14.5 % Platelet Count 200 130-400 10^3/uL Mean Platelet Volume 11.4 9.0-12.2 fL Immature Granulocyte % (Auto) 0 % Neutrophils (%) (Auto) 58 42-75 % Lymphocytes (%) (Auto) 31 12-44 % Monocytes (%) (Auto) 9 0-12 % Eosinophils (%) (Auto) 2 0-10 % Basophils (%) (Auto) 0 0-10 % Neutrophils # (Auto) 4.4 1.8-7.8 10^3/uL Lymphocytes # (Auto) 2.3 1.0-4.0 10^3/uL Monocytes # (Auto) 0.7 0.0-1.0 10^3/uL Eosinophils # (Auto) 0.2 0.0-0.3 10^3/uL Basophils # (Auto) 0.0 0.0-0.1 10^3/uL Immature Granulocyte # (Auto) 0.0 0.0-0.1 10^3/uL Sodium Level 142 135-145 MMOL/L Potassium Level 4.1 3.6-5.0 MMOL/L Chloride Level 111 H 98-107 MMOL/L Carbon Dioxide Level 19 L 21-32 MMOL/L Anion Gap 12 5-14 MMOL/L Blood Urea Nitrogen 12 7-18 MG/DL Creatinine 0.74 0.60-1.30 MG/DL Estimat Glomerular Filtration Rate 106 BUN/Creatinine Ratio 16 Glucose Level 92 70-105 MG/DL Calcium Level 8.6 8.5-10.1 MG/DL Serum Test, Qualitative NEGATIVE NEGATIVE My Orders Orders - PRINCE HOLLEY MD Ekg Tracing (02/04/23 10:45) Cbc And Automated Diff (02/04/23 10:53) Basic Metabolic Panel (02/04/23 10:53) Hcg,Qualitative Serum (02/04/23 10:53) Tetracaine 0.5% Ophth Lala Sdv (Tetracai (02/04/23 11:00) Fluorescein Ophthalmic Strips (Fluoresce (02/04/23 11:00) Balanced Salt Irrigation Soln (Bss Irrig (02/04/23 11:00) Orthostatic Vital Signs (Adult (02/04/23 10:53) Medications Given in ED Vital Signs/I&O 02/04/23 02/04/23 02/04/23 10:40 11:06 12:33 Pulse 40 36 45 36 38 Resp 16 16 B/P (MAP) 142/75 (97) 123/61 (81) 102/40 129/66 (87) 125/68 (87) Pulse Ox 99 97 O2 Delivery Room Air Capillary Refill : Less Than 3 Seconds Blood Pressure Mean: 97 Progress Note : Time: 12:01 Progress Note Patient seen and examined by me. Evaluation today includes physical examination, EKG, serum test, CBC, basic metabolic panel. Pertinent physical exam findings include well-developed well-nourished female completely asymptomatic of her bradycardia. Heart is regular, 2+ distal pulses. Lungs are clear. Neck is supple. Abdomen is benign. No focal neurologic deficits. She has injected tender right eye. Sluggish pupil on the right with normal extraocular muscles. Differential diagnosis includes traumatic iritis, conjunctivitis, asymptomatic bradycardia Labs independently reviewed and interpreted by me. Her CBC is normal, her serum test is negative, her basic metabolic panel is normal. Her EKG shows a normal sinus bradycardia at 38 beats a minute with normal intervals, no ST segment depression or elevation, no ectopy. After fluorescein staining of her right eye there is no significant uptake. Intraocular pressures are normal. I discussed the case with Dr. Faiza Read on for optometry. He indicates that he would like the patient to have Pred forte 2 drops in the right eye every 2 hours while awake for the duration of the rest of the day and then 4 times daily on Monday. He will see the patient at 9 AM in his clinic on Monday. Patient is advised if she develops symptoms due to her low heart rate such as lightheadedness, dizziness, a syncopal episode, chest pain or shortness of breath to return to the emergency department. Prescription for the Pred forte is sent to her pharmacy.. ED pm technician who is fluent in [place]ian was utilized to facilitate communication with the patient. All questions are sought and answered. Patient is stable for discharge ECG Initial ECG Impression Date: Feb 04, 2023 Initial ECG Impression Time: 10:45 Initial ECG Rate: 38 Initial ECG Rhythm: S.Miguel Initial ECG Intervals: Normal Initial ECG Impression: Normal Initial ECG Comparisson: No Previous ECG Available Departure Communication (Admissions) Time/Spoke to Consulting Phy: 12:[address] Read - will see on Monday in clinic at 0900; pred forte Q2 while awake today then QID tomorrow Impression Primary Impression: Traumatic iritis Disposition: 01 HOME, SELF-CARE Condition: Stable Departure-Patient Inst. Decision time for Depature: 12:04 Referrals: FAIZA READ OD NO,LOCAL PHYSICIAN (PCP) Primary Care Physician Patient Instructions: How to Use Eye Drops Add. Discharge Instructions: Use the steroid eye drops as directed in the right eye every 2 hours while awake today. Then go to 4 times a day tomorrow. Dr Read wants to see you in his Clinic on Monday at 0900. His phone number is [phone] if you have any concerns over the rest of the weekend. Over the counter ibuprofen 600mg (3 pills) every 6 hours with food. Return to the Emergency Department for re-evaluation for any new, concerning or emergent complaints. Scripts Prednisolone Acetate/Pf (Prednisolone Acet 1% Eye Drop) 1 % Drops.susp 2 DROPS OP Q2H, #5 ML 2 drops every 2 hours while awak 02/04, then 4x a day 02/05. Prov: PRINCE HOLLEY MD 02/04/23 Copy Copies To 1: FAIZA READ OD Copies To 2: ELI BARROS KATHRYN M MD Feb 04, 2023 10:53
[2023-02-04 11:00] LABS: BASOPHILS % (AUTO) 0 % (0-10); EOSINOPHILS # (AUTO) 0.2 10^3/uL (0.0-0.3); EOSINOPHILS % (AUTO) 2 % (0-10); HEMATOCRIT 39 % (35-52); LYMPHOCYTES # (AUTO) 2.3 10^3/uL (1.0-4.0); LYMPHOCYTES % (AUTO) 31 % (12-44); MEAN CORPUSCULAR HEMOGLOBIN 29 pg (25-34); MEAN CORPUSCULAR HGB CONC 34 g/dL (32-36); MEAN CORPUSCULAR VOLUME 87 fL (80-99); MEAN PLATELET VOLUME 11.4 fL (9.0-12.2); MONOCYTES # (AUTO) 0.7 10^3/uL (0.0-1.0); MONOCYTES % (AUTO) 9 % (0-12); NEUTROPHILS # (AUTO) 4.4 10^3/uL (1.8-7.8); NEUTROPHILS % (AUTO) 58 % (42-75); PLATELET COUNT 200 10^3/uL (130-400); WHITE BLOOD COUNT 7.6 10^3/uL (4.3-11.0)
[2023-02-04] MEDS ORDERED: FLUORESCEIN 1 MG OPHTHALMIC STRIPS OU ONE (11:00)
[2023-02-04] MEDS ORDERED: TETRACAINE 0.5% OPHTH SOLN 4 ML BTL (SINGLE DOSE ONLY) OU ONE (11:00)
[2023-02-04] MEDS ORDERED: BSS 15 ML IR ONE (11:00)
[2023-02-04 11:06] VITALS: BP_SYST 123; BP_SYST 125; BP_SYST 129; BP_DIAS 61; BP_DIAS 66; BP_DIAS 68
[2023-02-04 11:11] LABS: POTASSIUM 4.1 MMOL/L (3.6-5.0)
[2023-02-04 11:12] LABS: CALCIUM 8.6 MG/DL (8.5-10.1)
[2023-02-04 11:17] LABS: CREATININE SERUM 0.74 MG/DL (0.60-1.30)
[2023-02-04] MEDS ORDERED: PRED5DRO24 OP (12:22)
[2023-02-04 12:33] VITALS: BP 102/40
== END 2023-02-04 12:35 | disposition home or self-care (01) ==
LOC: EDUNIT# 10:38 → ER 10:40
DX: H20.9 Unspecified iridocyclitis (principal); R00.1 Bradycardia, unspecified
CPT/HCPCS: 36415; 80048; 84703; 85025; 93005